=== PATIENT | female | born 1945 | race Caucasian/White ===

== ENCOUNTER 2021-02-18 09:44 | Outpatient (REF) | payer MEDICARE, OTHER, SELFPAY ==
--- NOTE | ~2021-02-18 | MM_ITS ---
EXAMINATION: MM SCREENING DIGITAL BREAST TOMOSYNTHESIS, BILATERAL CLINICAL INFORMATION: Screening. Asymptomatic. The lifetime risk of breast cancer based on the Tyrer-Cuzick Model is 3.9%. COMPARISON: Mammography: February 17, 2020 and studies dating back to January 25, 2014 TECHNIQUE: Digital breast tomosynthesis is performed in both the craniocaudal and mediolateral oblique views along with computer-aided detection (CAD). Synthesized 2D images are generated from the tomosynthesis. FINDINGS: The breasts are heterogeneously dense, which may obscure small masses (ACR BI-RADS breast composition Category c). There are no significant masses, abnormal calcifications, or other abnormalities. MM/MM tomosynthesis screening BI IMPRESSION: There are no significant changes from prior study. ASSESSMENT: BI-RADS 1: Negative RECOMMENDATION: Routine annual mammography screening. This patient's information was entered into a reminder system with a target due date for their next mammogram.
== END 2021-02-18 09:45 | disposition home or self-care (01) ==
LOC: HO.MAMMO 09:44
PROVIDERS: PCP Internal Medicine; Visit Provider Internal Medicine
DX: Z12.31 Encounter for screening mammogram for malignant neoplasm of breast (principal)
CPT/HCPCS: 77063; 77067

== ENCOUNTER → 2021-05-18 09:41 | Outpatient (BNVA) | payer MEDICARE, OTHER, SELFPAY | PROVIDERS: PCP Internal Medicine; Referring Provider Internal Medicine; Visit Provider Advanced Practice Midwife ==

== ENCOUNTER 2022-02-23 09:38 | Outpatient (REF) | payer MEDICARE, OTHER, SELFPAY ==
--- NOTE | ~2022-02-23 | MM_ITS ---
EXAMINATION: MM SCREENING DIGITAL BREAST TOMOSYNTHESIS, BILATERAL CLINICAL INFORMATION: Screening. Asymptomatic. The lifetime risk of breast cancer based on the Tyrer-Cuzick Model is 5%. COMPARISON: Mammography: 02/18/2021, 02/17/2020, 02/11/2019 TECHNIQUE: Digital breast tomosynthesis is performed in both the craniocaudal and mediolateral oblique views along with computer-aided detection (CAD). Synthesized 2D images are generated from the tomosynthesis. FINDINGS: There are scattered areas of fibroglandular density (ACR BI-RADS breast composition Category b). There are no significant masses, abnormal calcifications, or other abnormalities. Breast tissue composition borders on heterogeneously dense. Parenchymal pattern is similar to prior exams and there is no developing density. No significant changes. MM/MM tomosynthesis screening BI IMPRESSION: No mammographic evidence of malignancy. ASSESSMENT: BI-RADS 1: Negative RECOMMENDATION: Routine annual mammography screening. This patient's information was entered into a reminder system with a target due date for their next mammogram.
== END 2022-02-23 09:39 | disposition home or self-care (01) ==
LOC: HO.MAMMO 09:38
PROVIDERS: PCP Internal Medicine; Visit Provider Internal Medicine
DX: Z12.31 Encounter for screening mammogram for malignant neoplasm of breast (principal)
CPT/HCPCS: 77063; 77067

== ENCOUNTER 2023-03-01 09:48 | Outpatient (REF) | payer MEDICARE, OTHER, SELFPAY ==
--- NOTE | ~2023-03-01 | MM_ITS ---
EXAMINATION: MM SCREENING DIGITAL BREAST TOMOSYNTHESIS, BILATERAL CLINICAL INFORMATION: Screening. Asymptomatic. The lifetime risk of breast cancer based on the Tyrer-Cuzick Model is 4.6%. COMPARISON: Mammography: This study is compared with prior exams dating back to 2019. TECHNIQUE: Digital breast tomosynthesis is performed in both the craniocaudal and mediolateral oblique views along with computer-aided detection (CAD). Synthesized 2D images are generated from the tomosynthesis. FINDINGS: The breasts are heterogeneously dense, which may obscure small masses (ACR BI-RADS breast composition Category c). There are no significant masses, abnormal calcifications, or other abnormalities. MM/MM tomosynthesis screening BI IMPRESSION: No mammographic evidence of malignancy. ASSESSMENT: BI-RADS BI-RADS 1 - Negative RECOMMENDATION: Routine annual mammography screening. 1 year F/U This examination should not preclude the clinical evaluation of a suspicious palpable abnormality. This patient's information was entered into a reminder system with a target due date for their next mammogram.
== END 2023-03-01 09:49 | disposition home or self-care (01) ==
LOC: HO.MAMMO 09:48
PROVIDERS: PCP Internal Medicine; Visit Provider Internal Medicine
DX: Z12.31 Encounter for screening mammogram for malignant neoplasm of breast (principal)
CPT/HCPCS: 77063; 77067

== ENCOUNTER → 2023-03-01 10:15 | Outpatient (BNV) | payer MEDICARE, OTHER, SELFPAY | PROVIDERS: PCP Internal Medicine; Visit Provider Radiology Diagnostic Radiology | DX: Z12.31 Encounter for screening mammogram for malignant neoplasm of breast (principal) | CPT/HCPCS: 77063; 77067 ==

== ENCOUNTER 2023-05-24 08:58 | Outpatient (AMB) | payer MEDICARE, OTHER, SELFPAY ==
--- NOTE | 2023-05-24 09:27 | MHC.OFFVIS ---
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 Scribed for LITTLE Neri by Katiuska Altamirano medical claims processor, on 05/24/2023 at 9:53 am EST. Net Mender Required: No Allergies lidocaine Allergy (Unknown, Verified 05/24/23 09:42) Weakness Percodan Allergy (Unknown, Uncoded 05/24/23 09:42) Dizziness Talwin Allergy (Unknown, Uncoded 05/24/23 09:42) Headache Is last menstrual period known: No Post menopausal: Yes Patient : No HPI HPI Comments History of Present Illness Details She is a postmenopausal woman presenting for annual exam. Doing well with no bleaching supervisor concerns. Patient admits she tries to eat a healthy diet including Calcium and Vitamin D. She stays active with walking. Denies vaginal itching and irritation. Denies family hx of colon and ovarian cancer. History of normal paps, done at the [facility]. Last mammogram 03/01/23. Never had a colonoscopy. 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 [employer] Female Reproductive History Menstrual control method: none History of abnormal pap smear: No History of STI: No History of abnormal mammogram: No Other: manyyears ago Physical Exam Vital Signs: Last Vital Signs BP 132/62 05/24/23 09:37 BMI result Body Mass Index 28.2 Const General: cooperative, healthy appearing, no acute distress, well developed and alert Orientation/consciousness: patient oriented x3 HEENT Head: Yes normal to inspection Eyes General: appearance normal, both eyes and all related structures Neck Neck: Yes normal visual inspection Thyroid: Thyroid normal Chest Chest palpation & inspection: normal inspection of the chest Breast/axilla inspection: normal inspection of the breasts (no puckering, dimpling, peau de orange, retraction, discharge, masses) Breast/axilla palpation: normal palpation of the breasts Resp Effort & Inspection: normal respiratory effort GI Inspection: Yes normal to inspection Palpation (GI): Soft to palpation (to palpation) Rectal Exam - Female: deferred Other: smallest speculum was utilized; narrow introitus General: Yes bladder normal to inspection External Female Exam: normal external appearance and normal appearance of the urethra Speculum Exam - Vagina: normal appearance of the vagina, normal palpation and vagina atrophic Speculum Exam - Cervix: normal appearance of the cervix and normal palpation Bimanual exam- vagina & uterus: normal palpation and normal palpation Bimanual Exam- Adnexa, other: normal adnexae and no masses Skin General skin exam: no rashes or lesions noted Neuro General: patient oriented x3 Cognition (Neuro): normal cognition Extrem General: Yes normal to inspection Psych Attitude: cooperative Thought process: Normal thought process present Assessment & Plan Assessment & Plan (1) Encounter for annual routine gynecological examination: Code(s): Z01.419 - Encounter for gynecological examination (general) (routine) without abnormal findings Plan: Discussed: Current recommendations for pap smears per ASCCP guidelines-aged out with normal pap history. Advised to speak with PCP for bone density monitoring. Breast awareness and periodic self breast exams. Encouraged yearly mammograms. Maintaining a healthy lifestyle including a well balanced diet including Calcium and Vitamin D and routine exercise. Contact office with any PMB. All of her questions and concerns were addressed to the best of my ability. RTO in 1 year for AG. Coding Level of Care Code Est Pt Prev Care >65y(51181) Diagnoses Encounter for annual routine gynecological examination Z01.419
[2023-05-24 09:37] VITALS: BP 132/62; BMI 28.2
== END 2023-05-24 10:07 | disposition home or self-care (01) ==
PROVIDERS: PCP Internal Medicine; Visit Provider Advanced Practice Midwife
DX: Z01.419 Encounter for gynecological examination (general) (routine) without abnormal findings (principal)
CPT/HCPCS: G0101

== ENCOUNTER → 2023-05-24 08:58 | Outpatient (BNVA) | payer MEDICARE, OTHER, SELFPAY | PROVIDERS: PCP Internal Medicine; Visit Provider Advanced Practice Midwife | DX: Z01.419 Encounter for gynecological examination (general) (routine) without abnormal findings (principal) | CPT/HCPCS: G0101 ==

== ENCOUNTER 2024-03-06 09:48 | Outpatient (REF) | payer MEDICARE, OTHER, SELFPAY | END 2024-03-06 09:49 | disposition home or self-care (01) | LOC: HO.MAMMO 09:48 | PROVIDERS: Absent Provider Nurse Practitioner Family; PCP Internal Medicine; Visit Provider Internal Medicine | DX: Z12.31 Encounter for screening mammogram for malignant neoplasm of breast (principal) | CPT/HCPCS: 77063; 77067 ==

== ENCOUNTER → 2024-03-06 10:00 | Outpatient (BNV) | payer MEDICARE, OTHER, SELFPAY | PROVIDERS: Absent Provider Nurse Practitioner Family; PCP Internal Medicine; Visit Provider Radiology Diagnostic Radiology | DX: Z12.31 Encounter for screening mammogram for malignant neoplasm of breast (principal) | CPT/HCPCS: 77063; 77067 ==

== ENCOUNTER 2024-11-20 11:03 | Emergency (ER) | payer MEDICARE, OTHER, SELFPAY ==
--- NOTE | ~2024-11-20 | XR_ITS ---
EXAMINATION: XR ANKLE, RIGHT CLINICAL INFORMATION: pain COMPARISON: None available. TECHNIQUE: AP, lateral, and mortise views of the right ankle. FINDINGS: Edema pattern involving the medial and lateral malleolus. No subcutaneous emphysema. No acute cortical disruption or gross malalignment. No gross joint effusion. No lytic or blastic lesions. XR/XR ankle RT min 3V IMPRESSION: Bimalleolar edema. No gross acute fracture or dislocation. Electronically signed by: Darrian Thayer MD 11/20/2024 01:12 PM EDT
--- NOTE | ~2024-11-20 | XR_ITS ---
EXAMINATION: XR FOOT, RIGHT CLINICAL INFORMATION: pain COMPARISON: None available. TECHNIQUE: AP, lateral, and oblique views of the right foot. FINDINGS: Osteopenia versus osteoporosis. Degenerative changes in the first metatarsophalangeal joint and in the interval joints of the toes. Degenerative changes in the tarsal bones. No acute cortical disruption or gross malalignment. No lytic or blastic lesions. No subcutaneous emphysema. XR/XR foot RT min 3V IMPRESSION: Osteoarthrosis involving mostly the first toe without acute fracture or dislocation. Electronically signed by: Darrian Thayer MD 11/20/2024 01:13 PM EDT
[2024-11-20 12:29] VITALS: BP 169/83; PULSE 78; RESP 16; TEMP 36.8; O2SAT 98; BMI 26.1
--- NOTE | 2024-11-20 12:31 | ED.LOWEXIN ---
HPI - Extremity Injury (Lower) General Chief Complaint: Extremity Injury, Lower Stated Complaint: R Ankle Pain After Fall Time Seen by Provider: 11/20/24 13:54 Source: patient and RN notes reviewed Mode of arrival: ambulatory Limitations: no limitations History of Present Illness ED Provider: Chante Mena PA-C HPI Narrative: This is a 79-year-old female who presents emergency department for evaluation of right ankle pain. Patient states that on October 27 she was walking out of her house in tripped and fell forward, ultimately twisting her right ankle. Denies head injury or head strike. Patient states that she had a significant amount of bruising and swelling. She states that she continues to have swelling, and pain in her ankle. She has been taking Tylenol for her symptoms with some relief. No other complaints or concerns at this time. MD complaint: ankle injury Onset (ago): week(s) Type of Injury: unknown Place: street/outdoors Severity: moderate Relieving factors: nothing Exacerbating factors: weight bearing, movement and palpation Other symptoms: none Related Data Home Medications ?Medication ?Instructions ?Recorded ?Confirmed cholecalciferol (vitamin D3) 25 25 mcg PO DAILY 05/18/21 mcg (1,000 unit) capsule latanoprost 0.005 % eye drops 1 drp ophthalmic (eye) BEDTIME 05/18/21 magnesium oxide 400 mg PO DAILY 05/18/21 meclizine 12.5 mg tablet 12.5 mg PO TID PRN 05/18/21 omega 3,6,9 combination no.7 92 mg mg PO 05/18/21 (43 mg-22 [id number]) chew tablet vitamin E mixed 400 unit tablet unit PO 05/18/21 Allergies Allergy/AdvReac Type Severity Reaction Status Date / Time lidocaine Allergy Unknown Weakness Verified 11/20/24 12:35 Percodan Allergy Unknown Dizziness Uncoded 05/24/23 09:42 Talwin Allergy Unknown Headache Uncoded 05/24/23 09:42 Review of Systems Review of Systems: Yes all other systems are reviewed and are negative Constitutional: Constitutional: Reports as per HPI [facility] Past Medical History Medical History Basal cell carcinoma Hyperlipidemia Rosacea Vertigo GERD (gastroesophageal reflux disease) Hypertension Family History Family History Maternal Aunt History of breast cancer Social History Social History Alcohol intake: never Patient Tobacco Use Status: Never used Tobacco 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 Physical Exam Vital Signs: Vital Signs: Last Vital Signs Temp 98.2 F 11/20/24 14:17 Pulse 78 11/20/24 14:17 Resp 16 11/20/24 14:17 BP 169/83 H 11/20/24 14:17 Pulse Ox 98 11/20/24 14:17 O2 Del Method Room Air 11/20/24 14:17 BMI result Body Mass Index 26.1 Const: General: cooperative, comfortable and no acute distress Orientation/consciousness: patient oriented x3 Limitations: no limitations HEENT: Head: Yes normal to inspection, Yes normocephalic and Yes atraumatic Ears: hearing grossly normal bilaterally General nose exam: Normal external nose present Face and sinus: Yes normal facial exam Mouth: Normal oral and palatal mucosa present, oropharynx normal and moist mucous membranes Throat: Yes posterior oropharynx normal Eyes: General: appearance normal, both eyes and all related structures Eyelids: Yes eyelids normal Conjunctivae: conjunctivae normal Sclerae: sclerae normal Pupils: Equal, round and reactive pupils present EOM: EOMs intact bilaterally Neck: Neck: Yes normal visual inspection, Yes full ROM and Yes no lymphadenopathy Lymphatic: no lymphadenopathy noted Chest: Chest palpation & inspection: normal inspection of the chest Resp: Effort & Inspection: normal respiratory effort and able to speak in complete sentences Auscultation: clear to auscultation bilaterally, no crackles, no rales, no rhonchi and no wheezes Cardio: Rate: regular rate Rhythm: regular rhythm Heart sounds: S1 normal heart sound present and S2 normal heart sound present GI: Inspection: Yes normal to inspection Skin: General skin exam: no rashes or lesions noted Trauma: no lacerations or abrasions Wounds: no wounds Neuro: General: patient oriented x3 and moves all extremities Cranial nerves: Yes Equal, round and reactive pupils present Extrem: Other: Right ankle with moderate edema noted over the medial and lateral malleoli. Strong DP pulse. No bony step off or deformity. Achilles tendon is intact. ROM is intact. no calf ttp. General: Yes normal to inspection Right upper extremity: normal to inspection Left upper extremity: normal to inspection Left lower extremity: normal to inspection Course Course Course Narrative: This is an RME: Additional HPI, ROS, PE not included below will be deferred to primary provider. RME assessment and note performed by: Chante Heart PA-C This is a [id number], with a hx of vertigo, who presents to the ER with a complaint of right foot and ankle pain x several weeks. Reports she twisted her ankle while ambulating several weeks ago and has had pain since. TTP and edematous over the medial and lateral malleoli. Plan: xray foot and ankle. Medical Decision Making Medical Decision Making MDM Narrative: 79 y/o F who presents to the Er with complaints of R ankle pain which started several weeks ago after mechanical fall. On arrival, pt well appearing in no acute distress. Vital signs WNL. She is ambulatory. R LE with moderate diffuse edema without any skin changes. DDX including liagamentouos injury, strain, sprain, fx. Less likely DVT or peripheral edema. xrays performed revealing no acute bony abnormalities. Given malleloli TTP and edema, pt placed in tall boot and given ortho referall. Given return precautions. Stable for d/c. Differential Diagnosis Differential Diagnoses: The differential diagnosis associated with the presentation includes see above Radiology Impression Discussion of test interpretation with radiology: I have reviewed the radiologist's reading. Radiologist Impression: [address] [address] XRay Report Signed Patient: Anabella Wilson MR#: [id number] : 1945 Acct:[id number] Age/Sex: 79 / F ADM Date: 11/20/24 Loc: HO.ED Attending Dr: Ordering Physician: Chante Heart Date of Service: 11/20/24 Procedure(s): XR ankle RT min 3V Accession Number(s): [id number] cc: Benjamin Donato MD; Chante Heart~ EXAMINATION: XR ANKLE, RIGHT CLINICAL INFORMATION: pain COMPARISON: None available. TECHNIQUE: AP, lateral, and mortise views of the right ankle. FINDINGS: Edema pattern involving the medial and lateral malleolus. No subcutaneous emphysema. No acute cortical disruption or gross malalignment. No gross joint effusion. No lytic or blastic lesions. XR/XR ankle RT min 3V IMPRESSION: Bimalleolar edema. No gross acute fracture or dislocation. [address] [address] XRay Report Signed Patient: Anabella Wilson MR#: [id number] : 1945 Acct:[id number] Age/Sex: 79 / F ADM Date: 11/20/24 Loc: HO.ED Attending Dr: Ordering Physician: Chante Heart Date of Service: 11/20/24 Procedure(s): XR foot RT min 3V Accession Number(s): [id number] cc: Benjamin Donato MD; Chante Heart~ EXAMINATION: XR FOOT, RIGHT CLINICAL INFORMATION: pain COMPARISON: None available. TECHNIQUE: AP, lateral, and oblique views of the right foot. FINDINGS: Osteopenia versus osteoporosis. Degenerative changes in the first metatarsophalangeal joint and in the interval joints of the toes. Degenerative changes in the tarsal bones. No acute cortical disruption or gross malalignment. No lytic or blastic lesions. No subcutaneous emphysema. XR/XR foot RT min 3V IMPRESSION: Osteoarthrosis involving mostly the first toe without acute fracture or dislocation. Electronically signed by: Darrian Thayer MD 11/20/2024 01:13 PM EDT Dictated By: Darrian Farley MD Discharge Plan Discharge Clinical Impression: Sprain of ankle Patient Disposition: Home, Self-Care Instructions: Ankle Sprain (ED), Sprain (ED), R.I.C.E. Treatment (ED), Walking Boot (ED) Additional Instructions: You were seen in the emergency department due to ankle pain. You do have arthritis noted in your x-rays, you can see the full report below. You do not have any fractures noted. You need to follow-up with the orthopedic team, call today to make an appointment as you may need an MRI. Rest, ice, and elevate your foot and ankle. Continue taking Tylenol as needed for pain. If any new or worsening symptoms occur including but not limited to worsening pain, severe chest pain, shortness of breath, please seek emergent care. EXAMINATION: XR ANKLE, RIGHT CLINICAL INFORMATION: pain COMPARISON: None available. TECHNIQUE: AP, lateral, and mortise views of the right ankle. FINDINGS: Edema pattern involving the medial and lateral malleolus. No subcutaneous emphysema. No acute cortical disruption or gross malalignment. No gross joint effusion. No lytic or blastic lesions. XR/XR ankle RT min 3V IMPRESSION: Bimalleolar edema. No gross acute fracture or dislocation. Electronically signed by: Darrian Thayer MD 11/20/2024 01:12 PM EDT RP EXAMINATION: XR FOOT, RIGHT CLINICAL INFORMATION: pain COMPARISON: None available. TECHNIQUE: AP, lateral, and oblique views of the right foot. FINDINGS: Osteopenia versus osteoporosis. Degenerative changes in the first metatarsophalangeal joint and in the interval joints of the toes. Degenerative changes in the tarsal bones. No acute cortical disruption or gross malalignment. No lytic or blastic lesions. No subcutaneous emphysema. XR/XR foot RT min 3V IMPRESSION: Osteoarthrosis involving mostly the first toe without acute fracture or dislocation. Electronically signed by: Darrian Thayer MD 11/20/2024 01:13 PM EDT RP Dictated By: Darrian Farley MD Prescriptions: No Action meclizine 12.5 mg tablet 12.5 mg PO TID PRN latanoprost 0.005 % drops 1 drp ophthalmic (eye) BEDTIME magnesium oxide 400 mg magnesium capsule 400 mg PO DAILY cholecalciferol (vitamin D3) 25 mcg (1,000 unit) capsule 25 mcg PO DAILY omega 3,6,9 combination no.7 92 mg (43 mg-22 [id number]) tablet,chewable PO vitamin E mixed 400 unit tablet PO Referrals: [facility] [place] [facility] [Provider Group] Interventions: ED Discharge Assessment Last Done: 11/20/24 14:17 Discharge Date/Time: 11/20/24 14:20 Print Language: Icelandic
[2024-11-20 14:17] VITALS: BP 169/83; PULSE 78; RESP 16; TEMP 36.8; O2SAT 98
--- OUTSIDE RECORDS SUMMARY | 2024-11-20 16:52 | XMS_ITS | Continuity of Care Document ---
Author Name [facility] Organization [facility] Care Team Providers [place] Stocker Name Role Phone [facility] Unavailable Unavailable Problems Combined list of problems from Department of [facility] and Veterans Affairs facilities. It does not include entries that were removed or entered in error. Problem Status Onset Date Problem Type Date of Resolution Comments Source Benign paroxysmal positional vertigo Active Condition [facility] [place] History of malignant basal cell neoplasm of skin Active Condition Jan 22, 2018 Entered By: NIKOLAS GRANDE Comment: sees derm yearly. h/o basal cell removed on face [facility] Hyperlipidemia (SNOMED CT 56210157) Active Condition Nov 26, 2009 Entered By: MARIELENA GARRETT Comment: -- diet controlled [facility] Vertigo (SNOMED CT 541459258) Active Condition [facility] Diagnosis: ICD-10-CM Z23 Encounter for immunization Active Diagnosis [facility] [place] [facility] Diagnosis: ICD-10-CM E78.5 Hyperlipidemia, unspecified Active Diagnosis [facility] [place] [facility] Medications Combined list of outpatient medications from Department [facility] and [facility] facilities.Medications provided include 1) outpatient medications from the last 15 months, and 2) patient-reported medications. Medication Details Route Status Patient Instructions Prescription Expires Prescription Number Last Dispense Date Ordering Provider Order Date Order Qty Source CHOLECALCIF DREA 25MCG (1,000UNIT) TAB TAKE ONE TABLET BY MOUTH DAILY ORAL ACTIVE CARLOTTA GARRETT 2016 [facility] LATANOPROST 0.005% SOLN,OPH INSTILL 1 DROP INTO EACH EYE ONCE DAILY OPHTHA LMIC ACTIVE TRISTAN HERRERA 2022 [facility] [place] MAGNESIUM OXIDE 420MG TAB TAKE ONE TABLET BY MOUTH DAILY ORAL ACTIVE [facility] GRANDE [facility] MECLIZINE HCL 25MG TAB TAKE ONE-HALF TABLET BY MOUTH THREE TIMES DAILY NEEDED ORAL ACTIVE CARLOTTA GARRETT S [facility] OMEGA-3-ACI D ETHYL ESTERS 1000MG CAP,ORAL TAKE 1 CAPSULE BY MOUTH DAILY ORAL ACTIVE CARLOTTA GARRETTIAM S [facility] Allergies, Adverse Reactions, Alerts Combined list of allergies from Department of Defense and Veterans Affairs facilities. It does not include entries that were removed or entered in error. Substance Category Reaction Severity Reaction type Status Date Reported Comments Source BRIMONIDINE Propensity to adverse reactions to drug (finding) Blurring of visual image active 2 [facility] [place] [facility] PERCODAN Propensity to adverse reactions to drug (finding) Nausea and vomiting active 0 [facility] [facility] TALWIN Propensity to adverse reactions to drug (finding) Nausea and vomiting active [facility] [place] Propensity to adverse reactions to drug (finding) Fatigue active 2 [facility] [place] [facility] Immunizations Combined list of available immunizations from the Department of Defense and Veterans Affairs facilities. Immunization Series Date Given Administered By Site Reaction Lot Number CVX Code Drug Router Operator Status Comments Source COVID-19 (MODERNA), MRNA, LNP-S, PF, 50 MCG/0.5 ML (AGES 12+ YEARS) 2023 THEE ROSARIO H LEFT DELTO ID [id number] 312 complet ed [facility] [place] INFLUENZA, UNSPECIFIED FORMULATION 2023 88 complet ed [facility] [place] [facility] COVID-19 (MODERNA), MRNA, LNP-S, PF, 50 MCG/0.5 ML (AGES 12+ YEARS) 1 2022 CARLOS ENRIQUE ELLIS LEFT DELTO ID [id number] 312 complet ed [facility] [place] [facility] INFLUENZA, UNSPECIFIED FORMULATION 2022 LEFT DELTO ID 88 complet ed Lot#: [id number] [facility] [place] PNEUMOCOCCAL CONJUGATE PCV20, POLYSACCHARID E [id number] CONJUGATE, ADJUVANT, PF 2022 ANA CHAKRABORTY NE I LEFT DELTO ID [id number] 216 complet ed [facility] TD (ADULT), 2 LF TETANUS TOXOID, PRESERVATIVE FREE, ADSORBED 2022 MADELIN PARK BIBIANA LEFT DELTO ID [id number] 09 complet ed [facility] COVID-19 (MODERNA), MRNA, LNP-S, BIVALENT BOOSTER, PF, 50 MCG/0.5 ML OR 25MCG/0.25 ML DOSE 1 2021 229 complet ed MOD; [id number]; 3 [facility] INFLUENZA, UNSPECIFIED FORMULATION 2021 88 complet ed [facility] COVID-19 (MODERNA), MRNA, LNP-S, PF, 100 MCG OR 50 MCG DOSE 3 2020 207 complet ed MOD; [id number]; 2 [facility] INFLUENZA, UNSPECIFIED FORMULATION 2020 88 complet ed [facility] COVID-19 (MODERNA), MRNA, LNP-S, PF, 100 MCG/0.5 ML DOSE 2 2020 207 complet ed MOD; [id number]; 1 [facility] COVID-19 (MODERNA), MRNA, LNP-S, PF, 100 MCG/0.5 ML DOSE 1 2020 207 complet ed MOD; [id number]; 1 [facility] INFLUENZA, UNSPECIFIED FORMULATION 2019 88 complet ed [facility] INFLUENZA, SEASONAL, INJECTABLE 2018 141 complet ed [facility] INFLUENZA, SEASONAL, INJECTABLE 2017 141 complet ed [facility] ZOSTER RECOMBINANT 2 2017 187 complet ed [facility] ZOSTER RECOMBINANT 1 2017 187 complet ed [facility] INFLUENZA, SEASONAL, INJECTABLE 2016 141 complet ed [facility] FLU,3 YRS (HISTORICAL) 2015 88 complet ed Done at outside PCP office [facility] PNEUMOCOCCAL CONJUGATE PCV 13 2014 133 complet ed [facility] FLU,3 YRS (HISTORICAL) 2013 88 complet ed community PCP [facility] FLU,3 YRS (HISTORICAL) 2012 88 complet ed [facility] DTAP, UNSPECIFIED FORMULATION 2012 107 complet ed Site: Left Deltoid [facility] PNEUMOCOCCAL, UNSPECIFIED FORMULATION 2012 109 complet ed Site: Right Deltoid [facility] FLU,3 YRS (HISTORICAL) 2011 88 complet ed [facility] [place] FLU,3 YRS (HISTORICAL) 2010 88 complet ed [facility] TD(ADULT) UNSPECIFIED FORMULATION 2010 139 complet ed Site: Left Deltoid [facility] FLU,3 YRS (HISTORICAL) 2009 88 complet ed [facility] [place] FLU,3 YRS (HISTORICAL) 2009 88 complet ed [facility] ZOSTER LIVE 2009 MEGHNA MANN 121 complet ed [facility] NOVEL INFLUENZA-H1N 1-09, ALL FORMULATIONS 2009 128 complet ed [facility] FLU,3 YRS (HISTORICAL) 2008 88 complet ed [facility] PNEUMOCOCCAL, UNSPECIFIED FORMULATION 2007 109 complet ed [facility] PNEUMOCOCCAL POLYSACCHARID E [id number] 2005 33 complet ed [facility] PNEUMOCOCCAL, UNSPECIFIED FORMULATION 2005 109 complet ed [facility] Results Combined list of recent chemistry, hematology and other laboratory results from Department of Defense and Veterans Affairs, ranging from 15 months to all on record, depending upon the facility. Order Name Results Value Reference Range Date Interpretation Specimen Comments Source OCCULT BLOOD FIT X1 SCREEN(I N-HOUSE) HEMOGLOBIN .GASTROINT ESTINAL.LO WER [PRESENCE] IN STOOL BY IMMUNOASSA Y Negative 01/19 Specimen Type: FECES No comment entered. Ordering Provider: CARLOTTA HERRERA Report Released Date/Time: January 01, 2024 10:37 AM Reporting Lab: [address] [address] Performing Lab: [facility] [address] [address] [facility] THYROID T4 FREE(FT4 ) (WROX) THYROXINE (T4) FREE [MASS/VOLU ME] IN SERUM OR PLASMA 0.95 ng/dL 0.6 - 1.6 12/05 Specimen Type: SERUM No comment entered. Ordering Provider: CARLOTTA HERRERA Report Released Date/Time: Nov 01, 2023 10:59 AM Reporting Lab: [facility] [address] [address] Performing Lab: [facility] [address] [address] [facility] HEMOGLOB IN A1C PANEL HEMOGLOBIN A1C/HEMOGL OBIN.TOTAL IN BLOOD BY HPLC 5.5 4.0 - 5.6 12/05 Specimen Type: BLOOD Comment: Values obtained from A1C measurement s can vary. For atypical A1C assays, a reported value of 7.0 could actually be between 6.72 and 7.28 if measured by a reference method. A reported value of 9.0 could actually be between 8.73 and 9.27. Ref: http://www. ngsp.org/[place] Pdata.asp Ordering Provider: CARLOTTA HERRERA Report Released Date/Time: Nov 01, 2023 10:59 AM Reporting Lab: [facility] [address] [address] Performing Lab: [facility] [address] [facility] BASIC METABOLI C PANEL (non-fas ting) UREA NITROGEN [MASS/VOLU ME] IN SERUM OR PLASMA 25 mg/dL 7 - 25 12/05 Specimen Type: SERUM No comment entered. Ordering Provider: CARLOTTA HERRERA Report Released Date/Time: Nov 01, 2023 10:59 AM Reporting Lab: [facility] [address] Performing Lab: [facility] [address] [facility] BASIC METABOLI C PANEL (non-fas ting) GLUCOSE [MASS/VOLU ME] IN SERUM OR PLASMA 84 mg/dL 65 - 100 12/05 Specimen Type: SERUM No comment entered. Ordering Provider: CARLOTTA HERRERA Report Released Date/Time: Nov 01, 2023 10:59 AM Reporting Lab: [facility] [address] [address] Performing Lab: [facility] [address] [address] [facility] BASIC METABOLI C PANEL (non-fas ting) SODIUM [MOLES/VOL UME] IN SERUM OR PLASMA 142 mmol/L 135 - 145 12/05 Specimen Type: SERUM No comment entered. Ordering Provider: CARLOTTA HERRERA Report Released Date/Time: Nov 01, 2023 10:59 AM Reporting Lab: [facility] [address] Performing Lab: [facility] [place] [facility] [address] [address] [facility] BASIC METABOLI C PANEL (non-fas ting) POTASSIUM [MOLES/VOL UME] IN SERUM OR PLASMA 4.3 mmol/L 3.5 - 5.0 12/05 Specimen Type: SERUM No comment entered. Ordering Provider: CARLOTTA HERRERA Report Released Date/Time: Nov 01, 2023 10:59 AM Reporting Lab: [facility] [place] [facility] [address] [address] Performing Lab: [facility] [address] [facility] BASIC METABOLI C PANEL (non-fas ting) CHLORIDE [MOLES/VOL UME] IN SERUM OR PLASMA 106 mmol/L 100 - 110 12/05 Specimen Type: SERUM No comment entered. Ordering Provider: CARLOTTA HERRERA Report Released Date/Time: Nov 01, 2023 10:59 AM Reporting Lab: [facility] [address] Performing Lab: [facility] [address] [facility] BASIC METABOLI C PANEL (non-fas ting) CARBON DIOXIDE, TOTAL [MOLES/VOL UME] IN SERUM OR PLASMA 28 meq/L 20 - 30 12/05 Specimen Type: SERUM No comment entered. Ordering Provider: CARLOTTA HERRERA Report Released Date/Time: Nov 01, 2023 10:59 AM Reporting Lab: [facility]ITALUSE[facility] [address] [address] Performing Lab: [facility]ENTERTRN [facility] [address] [facility] BASIC METABOLI C PANEL (non-fas ting) CREATININE [MASS/VOLU ME] IN SERUM OR PLASMA 0.78 mg/dL 0.50 - 1.40 12/05 Specimen Type: SERUM No comment entered. Ordering Provider: CARLOTTA HERRERA Report Released Date/Time: Nov 01, 2023 10:59 AM Reporting Lab: [facility] [place] [facility] [address] [address] Performing Lab: [facility] [place] [address] [address] [facility] [place] [facility] BASIC METABOLI C PANEL (non-fas ting) GLOMERULAR FILTRATION RATE/1.73 SQ M.PREDICTE D [VOLUME RATE/AREA] IN SERUM, PLASMA OR BLOOD BY CREATININE -BASED FORMULA (CKD-EPI 2020) 77 mL/min 60 12/05 Specimen Type: SERUM No comment entered. Ordering Provider: CARLOTTA HERRERA Report Released Date/Time: Nov 01, 2023 10:59 AM Reporting Lab: [facility] [place] [address] [address] Performing Lab: [facility] [place] [address] [address] [facility] [place] [facility] CBC LEUKOCYTES [#/VOLUME] IN BLOOD BY AUTOMATED COUNT 4.54 10*3/uL 4.50 - 11.00 12/05 Specimen Type: BLOOD No comment entered. Ordering Provider: CARLOTTA HERRERA Report Released Date/Time: Nov 01, 2023 10:59 AM Reporting Lab: [facility] [place] [address] [address] Performing Lab: [facility] [place] [address] [address] [facility] [place] [facility] CBC ERYTHROCYT ES [#/VOLUME] IN BLOOD BY AUTOMATED COUNT 4.13 10*6/uL 3.93 - 5.16 12/05 Specimen Type: BLOOD No comment entered. Ordering Provider: CARLOTTA HERRERA Report Released Date/Time: Nov 01, 2023 10:59 AM Reporting Lab: [facility] [place] [address] [address] Performing Lab: [facility] [place] [facility] [address] [address] [facility] [place] [facility] CBC HEMOGLOBIN [MASS/VOLU ME] IN BLOOD 12.2 g/dL 12 - 15.2 12/05 Specimen Type: BLOOD No comment entered. Ordering Provider: CARLOTTA HERRERA Report Released Date/Time: Nov 01, 2023 10:59 AM Reporting Lab: [facility] [place] [facility] [address] [address] Performing Lab: [facility] [place] [facility] [address] [address] [facility] [place] [facility] CBC HEMATOCRIT [VOLUME FRACTION] OF BLOOD BY AUTOMATED COUNT 38.4 36.6 - 45.6 12/05 Specimen Type: BLOOD No comment entered. Ordering Provider: CARLOTTA HERRERA Report Released Date/Time: Nov 01, 2023 10:59 AM Reporting Lab: [facility] [place] [facility] [address] [address] Performing Lab: [facility] [place] [facility] [address] [address] [facility] [place] [facility] CBC MCV [ENTITIC VOLUME] BY AUTOMATED COUNT 93.0 fL 82 - 99 12/05 Specimen Type: BLOOD No comment entered. Ordering Provider: CARLOTTA HERRERA Report Released Date/Time: Nov 01, 2023 10:59 AM Reporting Lab: [facility] [address] [address] Performing Lab: [facility] [facility] [address] [address] [facility] [place] [facility] CBC MCHC [MASS/VOLU ME] BY AUTOMATED COUNT 31.8 g/dL 30.8 - 35.1 12/05 Specimen Type: BLOOD No comment entered. Ordering Provider: CARLOTTA HERRERA Report Released Date/Time: Nov 01, 2023 10:59 AM Reporting Lab: [facility] [place] [facility] [address] [address] Performing Lab: [facility] [place] [facility] [address] [address] [facility] [place] [facility] CBC PLATELETS [#/VOLUME] IN BLOOD BY AUTOMATED COUNT 227 10*3/uL 140 - 360 12/05 Specimen Type: BLOOD No comment entered. Ordering Provider: CARLOTTA HERRERA Report Released Date/Time: Nov 01, 2023 10:59 AM Reporting Lab: [facility] [address] [address] Performing Lab: [facility] [place] [facility] [address] [address] [facility] [place] [facility] CBC ERYTHROCYT E DISTRIBUTI ON WIDTH [RATIO] BY AUTOMATED COUNT 12.7 12.0 - 16.0 12/05 Specimen Type: BLOOD No comment entered. Ordering Provider: CARLOTAT HERRERA Report Released Date/Time: Nov 01, 2023 10:59 AM Reporting Lab: [facility] [place] [facility] [address] [address] Performing Lab: [facility] [place] [facility] [address] [address] [facility] [place] [facility] CBC MCH [ENTITIC MASS] BY AUTOMATED COUNT 29.5 pg 26.2 - 32.6 12/05 Specimen Type: BLOOD No comment entered. Ordering Provider: CARLOTTA HERRERA Report Released Date/Time: Nov 01, 2023 10:59 AM Reporting Lab: [facility] [place] [facility] [address] [address] Performing Lab: [facility] [place] [facility] [address] [address] [facility] [place] [facility] TSH THYROTROPI N [UNITS/VOL UME] IN SERUM OR PLASMA 1.11 u[IU]/mL 0.35 - 5.00 12/05 Specimen Type: SERUM No comment entered. Ordering Provider: CARLOTTA HERRERA Report Released Date/Time: Nov 01, 2023 10:59 AM Reporting Lab: [facility] [place] [facility] [address] [address] Performing Lab: [facility] [place] [facility] [address] [address] [facility] [place] [facility] LIPID PANEL, NON FASTING CHOLESTERO L [MASS/VOLU ME] IN SERUM OR PLASMA 201 mg/dL 12/05 H Specimen Type: SERUM No comment entered. Ordering Provider: CARLOTTA HERRERA Report Released Date/Time: Nov 01, 2023 10:59 AM Reporting Lab: [facility] [place] [facility] [address] [address] Performing Lab: [facility] [place] [facility] [address] [address] [facility] [place] [facility] LIPID PANEL, NON FASTING TRIGLYCERI DE [MASS/VOLU ME] IN SERUM OR PLASMA 67 mg/dL 0 - 150 12/05 Specimen Type: SERUM No comment entered. Ordering Provider: CARLOTTA HERRERA Report Released Date/Time: Nov 01, 2023 10:59 AM Reporting Lab: [facility] [place] [facility] [address] [address] Performing Lab: [facility] [place] [facility] [address] [address] [facility] [place] [facility] LIPID PANEL, NON FASTING CHOLESTERO L IN LDL [MASS/VOLU ME] IN SERUM OR PLASMA BY CALCCHRISSY N 136 mg/dL 0 - 129 12/05 H Specimen Type: SERUM No comment entered. Ordering Provider: CARLOTTA HERRERA Report Released Date/Time: Nov 01, 2023 10:59 AM Reporting Lab: [facility] [place] [facility] [address] [address] Performing Lab: [facility] [place] [facility] [address] [address] [facility] [place] [facility] LIPID PANEL, NON FASTING CHOLESTERO L.TOTAL/CH OLESTEROL IN HDL [MASS RATIO] IN SERUM OR PLASMA 3.9 12/05 Specimen Type: SERUM No comment entered. Ordering Provider: CARLOTTA HERRERA Report Released Date/Time: Nov 01, 2023 10:59 AM Reporting Lab: [facility] [place] [facility] [address] [address] Performing Lab: [facility] [place] [facility] [address] [address] [facility] [place] [facility] LIPID PANEL, NON FASTING CHOLESTERO L IN HDL [MASS/VOLU ME] IN SERUM OR PLASMA 52 mg/dL 40 - 60 12/05 Specimen Type: SERUM No comment entered. Ordering Provider: CARLOTTA HERRERA Report Released Date/Time: Nov 01, 2023 10:59 AM Reporting Lab: [facility] [place] [address] [address] Performing Lab: [facility] [place] [facility] [address] [address] [facility] [place] [facility] LIVER FUNCTION PROTEIN [MASS/VOLU ME] IN SERUM OR PLASMA 6.2 g/dL 6.0 - 8.3 12/05 Specimen Type: SERUM No comment entered. Ordering Provider: CARLOTTA HERRERA Report Released Date/Time: Nov 01, 2023 10:59 AM Reporting Lab: [facility] [place] [address] [address] Performing Lab: [facility] [place] [facility] [address] [address] [facility] [place] [facility] LIVER FUNCTION ALBUMIN [MASS/VOLU ME] IN SERUM OR PLASMA 3.6 g/dL 3.5 - 5.0 12/05 Specimen Type: SERUM No comment entered. Ordering Provider: CARLOTTA HERRERA Report Released Date/Time: Nov 01, 2023 10:59 AM Reporting Lab: [facility] [place] [address] [address] Performing Lab: [facility] [place] [address] [address] [facility] [place] [facility] LIVER FUNCTION ALKALINE PHOSPHATAS E [ENZYMATIC ACTIVITY/V OLUME] IN SERUM OR PLASMA 87 U/L 40 - 150 12/05 Specimen Type: SERUM No comment entered. Ordering Provider: CARLOTTA HERRERA Report Released Date/Time: Nov 01, 2023 10:59 AM Reporting Lab: [facility] [place] [facility] [address] [address] Performing Lab: [facility] [place] [facility] [address] [address] [facility] [place] [facility] LIVER FUNCTION ASPARTATE AMINOTRANS FERASE [ENZYMATIC ACTIVITY/V OLUME] IN SERUM OR PLASMA 18 U/L 5 - 34 12/05 Specimen Type: SERUM No comment entered. Ordering Provider: CARLOTTA HERRERA Report Released Date/Time: Nov 01, 2023 10:59 AM Reporting Lab: [facility] [place] [facility] [address] [address] Performing Lab: [facility] [place] [facility] [address] [address] [facility] [place] [facility] LIVER FUNCTION ALANINE AMINOTRANS FERASE [ENZYMATIC ACTIVITY/V OLUME] IN SERUM OR PLASMA 16 U/L 12/05 Specimen Type: SERUM No comment entered. Ordering Provider: CARLOTTA HERRERA Report Released Date/Time: Nov 01, 2023 10:59 AM Reporting Lab: [facility] [place] [facility] [address] [address] Performing Lab: [facility] [address] [address] [facility] LIVER FUNCTION BILIRUBIN. TOTAL [MASS/VOLU ME] IN SERUM OR PLASMA 0.5 mg/dL 0.2 - 1.2 12/05 Specimen Type: SERUM No comment entered. Ordering Provider: CARLOTTA HERRERA Report Released Date/Time: Nov 01, 2023 10:59 AM Reporting Lab: [facility] [place] [facility] [address] [id number] Performing Lab: [facility] [place] [facility] [address] [phone] [facility] [place] [facility] OCCULT BLOOD FIT X1 SCREEN(I N-HOUSE) OCCULT BLOOD (FIT)#1 OF 1 Negative 01/10 Specimen Type: FECES No comment entered. Ordering Provider: CARLOTTA HERRERA Report Released Date/Time: January 02, 2023 10:52 AM Reporting Lab: [facility] [place] [facility] [address] [phone] Performing Lab: [facility] [place] [facility] [address] [phone] [facility] THYROID T4 FREE(FT4 ) THYROXINE (T4) FREE [MASS/VOLU ME] IN SERUM OR PLASMA 1.01 ng/dL 0.6 - 1.6 12/20 Specimen Type: SERUM No comment entered. Ordering Provider: CARLOTTA HERRERA Report Released Date/Time: Dec 01, 2022 10:14 AM Reporting [facility] [place] [facility] [address] [address] Performing Lab: [facility] [place] [facility] [address] [facility] [address] [facility] [place] [facility] Vital Signs Combined list of inpatient and outpatient Vital Signs from Department of Defense and Veterans Affairs, ranging from 12 months to all on record, depending upon the facility. Vital Sign Value Date Comments Source SYSTOLIC BLOOD PRESSURE 133 01/01/20 24 10:23:07 [facility] [place] [facility] DIASTOLIC BLOOD PRESSURE 79 024 10:23:07 [facility] [place] [facility] PULSE OXIMETRY 98 01/01/2024 10:23:07 [facility] [place] [facility] WEIGHT 165 01/01/2024 10:23:07 [facility] [place] [facility] BMI 27 kg/m2 01/01/2024 10:23:07 [facility] [place] PAIN 0 01/01/2024 10:23:07 [facility] [place] HEIGHT 66 01/01/2024 10:23:07 [facility] [place] TEMPERATURE 97.6 01/01/2024 10:23:07 [facility] [place] PULSE 71 01/01/2024 10:23:07 [facility] [place] RESPIRATION 20 01/01/2024 10:23:07 [facility] [place] [facility] Encounters Combined list of: 1) Encounters from Department of Veterans Affairs facilities going backup to the last 18 months, not all VA inpatient encounters are included; 2) Encounters from the Department of Defense facilities going backup to 280 months. Location Location Details Encounter Type Encounter Number Reason For Visit Attending Provider ADM Date DC Date Status Disposition Source [facility] Encounter [id number] 05/24 [facility] [id number] 05/30 [facility] Encounter [id number] 06/05 [facility] OFF/OP EST DECEMBER X REQ PHY/QHP [id number] Diagnos is: ICD-10- CM Z23 Encount er for immuniz ation STEVEN ELLIS P 06/09 [facility] Encounter [id number] 06/13 [facility] Encounter [id number] 08/16 [facility] Encounter [id number] 08/31 [facility] Encounter [id number] 09/21 [facility] Encounter [id number] 10/30 [facility] Encounter [id number] 12/11 [facility] OFFICE O/P EST LOW 20 MIN [id number] Diagnos is: ICD-10- CM E78.5 Hyperli pidemia , unspeci fied Nader HERRERA 12/31 [facility] En[facility] [id number] 01/21 [facility] En[facility] [id number] 01/28 [facility] En[facility] [id number] 02/28 [facility] En[facility] [id number] 03/21 [facility] [place] En[facility] [id number] 04/10 [facility] En[facility] [id number] 04/29 [facility] En[facility] [id number] 05/02 [facility] En[facility] [id number] 06/12 [facility] En[facility] [id number] 06/13 [facility] [place] OFF/OP EST DECEMBER X REQ PHY/QHP [id number] Diagnos is: ICD-10- CM Z23 Encount er for immuniz ryne Timur ROSARIO H 06/17 [facility] En[facility] [id number]/[id number] [facility] [place] En[facility] [id number] 07/05 [facility] En[facility] [id number] 08/13 [facility] [place] En[facility] [id number] 08/29 [facility] [place] En[facility] [id number] 10/02 [facility] [place] En[facility] [id number] 10/24 [facility] Social History Combined list of available smoking, tobacco, and other social history from Department of Defense and Veterans Affairs facilities. Social History Type Response Date Comment Sourc e Tobacco smoking status NHIS VA-TOBACCO NEVER USED 01/01/2024 [facility] [place] [facility] History of tobacco use VA-TOBACCO FORMER USER 01/02/2023 [facility] [place] [facility] History of tobacco use CA-TOBACCO FORMER USER 02/03/2021 [facility] [place] [facility] History of tobacco use CA-TOBACCO FORMER USER 01/24/2020 [facility] [place] [facility] History of tobacco use CA-TOBACCO NEVER USED 02/16/2018 [facility] [place] [facility] History of tobacco use LIFETIME NON-TOBACCO USER 12/04/2017 [facility] [place] [facility] History of tobacco use LIFETIME NON-TOBACCO USER 02/14/2017 [facility] [place] [facility] History of tobacco use LIFETIME NON-TOBACCO USER 02/02/2016 [facility] [place] [facility] History of tobacco use LIFETIME NON-TOBACCO USER 11/24/2010 [facility] [place] [facility] Plan of Care List of future care activities from Department of Veterans Affairs facilities. Additional future care activities may be listed in the Assessment and Plan section. Date/Time Care Activity Care Activity Detail Facili ty 12/30/2024 AMBULATORY - MEDICINE [facility] [place] [facility]
== END 2024-11-20 14:20 | disposition home or self-care (01) ==
PROVIDERS: Emergency Provider Emergency Medicine; PCP Internal Medicine
DX: S93.401A Sprain of unspecified ligament of right ankle, initial encounter (principal); M25.571 Pain in right ankle and joints of right foot; W01.0XXA Fall on same level from slipping, tripping and stumbling without subsequent striking against object, initial encounter; Y93.01 Activity, walking, marching and hiking; Y92.89 Other specified places as the place of occurrence of the external cause; Y99.8 Other external cause status; Z79.899 Other long term (current) drug therapy
CPT/HCPCS: 73610; 73630; 99283

== ENCOUNTER → 2024-11-20 12:35 | Outpatient (BNV) | payer MEDICARE, OTHER, SELFPAY | PROVIDERS: Emergency Provider Emergency Medicine; PCP Internal Medicine; Visit Provider Radiology Diagnostic Radiology | DX: M25.571 Pain in right ankle and joints of right foot (principal); R22.41 Localized swelling, mass and lump, right lower limb; M79.671 Pain in right foot | CPT/HCPCS: 73610; 73630 ==

== ENCOUNTER 2024-12-02 13:44 | Outpatient (AMB) | payer MEDICARE, OTHER, SELFPAY ==
[2024-12-02 14:16] VITALS: BP 140/76; PULSE 92; TEMP 36.3; O2SAT 98; BMI 26.5
--- NOTE | 2024-12-02 14:16 | A.OFFPC_ITS ---
Vital Signs 12/02/24 14:16 Height 5 ft 5 in Weight 159 lb BMI 26.5 BP 140/76 H Blood Pressure Location Lt brachial Position Sitting Pulse 92 Pulse Source Pulse Oximeter Temp 97.3 F Temp Source Axillary Pulse Oximetry (%) 98 Oxygen Delivery Method Room Air Intake Visit Reasons: Routine Acetone Button Paster Required: No Accompanied by: Self / Same As Patient Allergies lidocaine Allergy (Unknown, Verified 12/02/24 14:17) Weakness Percodan Allergy (Unknown, Uncoded 12/02/24 14:17) Dizziness Talwin Allergy (Unknown, Uncoded 12/02/24 14:17) Headache Tobacco use date assessed: 12/02/24 Fall risk assessment: 1 Fall in past year Last assessed Fall Risk: 12/02/24 Dental Screening Dental Screen Date: 12/02/24 Did you have a dental visit in the last 12 months?: Yes Did you have a dental problem in the last 6 months where you did not have access to dental care?: No [facility] Medical History (Updated 12/02/24 @ 14:58 by Vince Granger MD) BPPV (benign paroxysmal positional vertigo) Basal cell carcinoma Hyperlipidemia Rosacea Vertigo GERD (gastroesophageal reflux disease) Hypertension Family History (Updated 12/02/24 @ 14:30 by Lana Cardenas CMA) Maternal Aunt History of breast cancer Mother No problems noted. Father No problems noted. 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 Cognitive needs: No Hearing needs: No Vision needs: Yes (rx glasses) Questionnaire PHQ-9 Over the last 2 weeks, how often have you been bothered by any of the following problems? 1. Little interest or pleasure in doing things: not at all 2. Feeling down, depressed, or hopeless: not at all 3. Trouble falling or staying asleep, or sleeping too much: not at all 4. Feeling tired or having little energy: not at all 5. Poor appetite or overeating: not at all 6. Feeling bad about yourself - or that you are a failure or have let yourself or your family down: not at all 7. Trouble concentrating on things, such as reading the newspaper or watching television: not at all 8. Moving or speaking so slowly that other people could have noticed. Or the opposite - being so fidgety or restless that you have been moving around a lot more than usual: not at all 9. Thoughts that you would be better off or of hurting yourself in some way: not at all Total score: 0 Source: Developed by Drs. Billy Reich, Rita Miles, Pedrito Bennett and colleagues, with an educational hannah from [employer]. Thrive Questionnaire Date Thrive assessed: 12/02/24 I am a: Patient Within the past 12 months, did the food you bought not last and you didn't have the money to get more?: Never true Within the past 12 months, did you worry whether your food would run out before you got money to buy more?: Never true Do you have trouble paying for medicines?: No Do you have trouble getting transportation to medical appointments?: No Do you have trouble paying your heating and electricity bill?: No Do you have trouble taking care of your child, family member or friend?: No Do you have trouble with day-to-day activities such as bathing, preparing meals, shopping, managing finances, etc.?: No Are you currently unemployed and looking for a job?: No Are you interested in more education?: No THRIVE Score: 0 AUDIT C Alcohol Use Questionnaire (AUDIT-C) 1. How often do you have a drink containing alcohol?: Monthly or less 2. How many drinks containing alcohol do you have on a typical day when you are drinking?: 1 or 2 3. How often do you have six or more drinks on one occasion?: Less than monthly Total Score: 2 FAN-7 AMB Questionnaire FAN-7 Date FAN - 7 assessed: 12/02/24 Feeling nervous, anxious, or on edge: 0 = Not at all Not being able to stop or control worryin = Not at all Worrying too much about different things: 0 = Not at all Trouble relaxin = Not at all Being so restless that it is hard to sit still: 0 = Not at all Becoming easily annoyed or irritable: 0 = Not at all Feeling afraid as if something awful might happen: 0 = Not at all Total FAN-7 score (0-4 normal; 5-9 mild; 10-14 moderate; 15-21 severe): 0 Source: Developed by Drs. Billy Reich, Rita Miles, Pedrito Bennett and colleagues, with an educational hannah from [employer]. Physical exam (Primary Care) Vital Signs: Last Vital Signs Temp 97.3 F 12/02/24 14:16 Pulse 92 12/02/24 14:16 BP 140/76 H 12/02/24 14:16 Pulse Ox 98 12/02/24 14:16 Oxygen Delivery Method Room Air 12/02/24 14:16 BMI result Body Mass Index 26.5 Tobacco/Smoking Status: Tobacco use Status Tobacco use date assessed 12/02/24 12/02/24 14:20 Patient Tobacco Use Status Former Tobacco user 12/02/24 14:31 e-Cigarette/Vaping Use Former Use 12/02/24 14:31 PHQ-9: PHQ-9 Score PHQ-9: Total score 0 12/02/24 14:31 Thrive Assessment: Date of Thrive Assessment Date Thrive assessed 12/02/24 12/02/24 14:20 Coding Level of Care Code New Pt Level 4 (10683) Complex EM visit Add On G2211 Diagnoses BPPV (benign paroxysmal positional vertigo) H81.10 Assessment & Plan Assessment & Plan (1) BPPV (benign paroxysmal positional vertigo): Code(s): H81.10 - Benign paroxysmal vertigo, unspecified ear Category: Medical Plan: Intermittent use of meclizine. Patient has had great benefit form acupuncture. Continue the same. Plan History of Present Illness The patient is a 79-year-old female presenting for a wellness visit focused on the management of vertigo and vaccination review. She has experienced non- positional vertigo over the years, significantly improved with regular acupuncture sessions over the past eight years. Previously on regular medication, she now reserves meclizine for occasional use to manage symptoms. Her medical history is notable for arthritis, affecting her physical activity level. Following a fall in October, she experienced right-sided swelling indicative of a tendon injury with an X-ray confirming no fracture. She remains diligent about her health, [facility]. Her vaccination history includes past measles and whooping cough infections, and a recent COVID-19 booster. Social History - with annual visits to [place] for [place] and vaccinations. - [facility] - Maintains independence, manages finances, and carries out daily activities such as grocery shopping. - Participates in community work by volunteering two and a half days per week. - Drives occasionally but avoids night driving due to safety concerns. - Keeps active by walking and engaging in volunteer work, although arthritis limits walking distance. - Actively involved in the planning of personal affairs and advanced care directives. Review of Systems - Neurological: Reports non-positional vertigo with episodes becoming infrequent and mild due to acupuncture; Denies major attacks recently. - Musculoskeletal: Reports arthritis affecting walking capacity; Denies other joint pain. - Other: Denies stomach pains except for occasional vertigo-related stomach upset. Physical Exam General: Cooperative and healthy appearing Nutritional Appearance: Well nourished Orientation/consciousness: Patient oriented x3 Limitations: No limitations Head: Normal to inspection General: Appearance normal, both eyes and all related structures Neck: Normal visual inspection Chest: Normal palpation of entire chest wall Respiratory: N ormal respiratory effort Neurology: Patient oriented x3, reports nonpositional vertigo, occasional quick spells, no severe attacks recently. Results - X-ray of the right ankle: No fracture identified. Plan Patient will continue acupuncture sessions for vertigo management with the optional use of meclizine for occasional symptoms. The recent ankle injury shows no fracture, and RICE therapy should be followed until the orthopedic evaluation. Her arthritis will be managed symptomatically through lifestyle modifications. Regarding vaccines, previous measles and whooping cough, and a recent COVID-19 dose suggest the patient requires no further immediate vaccines, although future COVID-19 boosters are advised when available. Regular check-ups at the [place] will be beneficial for ongoing health monitoring. The patient is advised to report any changes in symptoms or health status as needed. Patient was informed and verbally consented to the use of an ambient scribe for clinic note documentation during this visit. Discussion Notes I discussed with the patient the effective management of her vertigo symptoms through continued acupuncture, with reassurance provided regarding the safety and efficacy of meclizine for rare episodes of nausea. The absence of fracture post-fall and specific care for her tendon strain were reviewed, emphasizing suitable RICE therapy while awaiting orthopedic assessment. We covered her history of vaccinations, noting the adequacy of current immunizations but recommending future COVID-19 boosters. Further, I emphasized the importance of regular [facility] and provided reassurance on independent living capacity as part of wellness strategy. The patient confirmed understanding of the plan and sides with the proposed management approach. Patient Instructions - Continue regular acupuncture therapy and use meclizine as needed for vertigo symptoms. - Apply RICE therapy for ankle strain and maintain scheduled orthopedic follow- up. - Follow health safety measures and consider COVID-19 boosters when available. - Engage in activities that maintain functionality and monitor arthritis symptoms. - [facility] annually and report any new or worsening symptoms.
--- OUTSIDE RECORDS SUMMARY | 2024-12-02 15:55 | XMS_ITS | Continuity of Care Document ---
Author Name [facility] Organization [facility] Care Team Providers Care Pharmacoepidemiologist Name Role Phone [facility] Unavailable Unavailable Problems Combined list of problems from Department of [facility] and [facility] facilities. It does not include entries that [...] [facility] [place] [facility] Hyperlipidemia (SNOMED CT 75844119) Active Condition Nov 26, 2009 Entered By: MARIELENA GARRETT Comment: -- diet controlled [facility] [place] [facility] Vertigo (SNOMED CT 165032815) Active Condition [facility] [place] [facility] Diagnosis: ICD-10-CM Z23 Encounter for immunization Active Diagnosis [facility] [place] [facility] Diagnosis: ICD-10-CM E78.5 Hyperlipidemia, unspecified Active Diagnosis [place] [facility] [place] [facility] Medications Combined list of outpatient medications from Department [facility] and [facility] facilities.Medications provided include 1) outpatient medications from the last 15 months, and 2) patient-reported medications. Medication Details Route Status Patient Instructions Prescription Expires Prescription Number Last Dispense Date Ordering Provider Order Date Order Qty Source CHOLECALCIF DREA 25MCG (1,000UNIT) TAB TAKE ONE TABLET BY MOUTH DAILY ORAL ACTIVE CARLOTTA GARRETT 2016 [place] [facility] [place] [facility] LATANOPROST 0.005% SOLN,OPH INSTILL 1 DROP INTO EACH EYE ONCE DAILY OPHTHA LMIC ACTIVE TRISTAN HERRERA 2022 [facility] [place] [facility] MAGNESIUM OXIDE 420MG TAB TAKE ONE TABLET BY MOUTH DAILY ORAL ACTIVE [facility] MECLIZINE HCL 25MG TAB TAKE ONE-HALF TABLET BY MOUTH THREE TIMES DAILY NEEDED ORAL ACTIVE CARLOTTA GARRETT 2009 [facility] OMEGA-3-ACI D ETHYL ESTERS 1000MG CAP,ORAL TAKE 1 CAPSULE BY MOUTH DAILY ORAL ACTIVE CARLOTTA GARRETTIATimur S 2013 [facility] Allergies, Adverse Reactions, Alerts Combined list of allergies from Department of Defense and Veterans Affairs facilities. It does not include entries that were removed or entered in error. Substance Category Reaction Severity Reaction type Status Date Reported Comments Source BRIMONIDINE Propensity to adverse reactions to drug (finding) Blurring of visual image [facility] PERCODAN Propensity to adverse reactions to drug (finding) Nausea and vomiting active [facility] TALWIN Propensity to adverse reactions to drug (finding) Nausea and vomiting active [facility] TIMOLOL Propensity to adverse reactions to drug (finding) Fatigue active 2 [facility] Immunizations Combined list of available immunizations from the Department of Defense and Veterans Affairs facilities. 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 Comments Source COVID-19 (MODERNA), MRNA, LNP-S, PF, 50 MCG/0.5 ML (AGES 12+ YEARS) 2023 THEE ROSARIO H LEFT DELTO ID [id number] 312 complet ed [facility] INFLUENZA, UNSPECIFIED FORMULATION 2023 88 complet ed HISTORICA L INFORMATI ON - FROM PATIENT'S WRITTEN RECORD, [facility] COVID-19 (MODERNA), MRNA, LNP-S, PF, 50 MCG/0.5 ML (AGES 12+ YEARS) 1 2022 CARLOS ENRIQUE ELLIS LEFT DELTO ID [id number] 312 complet ed [facility] INFLUENZA, UNSPECIFIED FORMULATION 2022 LEFT DELTO ID 88 complet ed HISTORICA L INFORMATI ON - FROM PATIENT'S WRITTEN RECORD, Lot#: [id number] [facility] PNEUMOCOCCAL CONJUGATE PCV20, POLYSACCHARID E [id number] CONJUGATE, ADJUVANT, PF 2022 ANA CHAKRABORTY NE I LEFT DELTO ID [id number] 216 complet ed [facility] TD (ADULT), 2 LF TETANUS TOXOID, PRESERVATIVE FREE, ADSORBED 2022 MADELIN PARKA LEFT DELTO ID [id number] 09 complet ed Booster for Series, [facility] COVID-19 (MODERNA), MRNA, LNP-S, BIVALENT BOOSTER, PF, 50 MCG/0.5 ML OR 25MCG/0.25 ML DOSE 1 2021 229 complet ed MOD; [id number]; 3 [facility] INFLUENZA, UNSPECIFIED FORMULATION 2021 88 complet ed Booster for Series, HISTORICA L INFORMATI ON - FROM PATIENT'S WRITTEN RECORD, [facility] COVID-19 (MODERNA), MRNA, LNP-S, PF, 100 MCG OR 50 MCG DOSE 3 2020 207 complet ed MOD; [id number]; 2 [facility] INFLUENZA, UNSPECIFIED FORMULATION 2020 88 complet ed Booster for Series, HISTORICA L INFORMATI ON - FROM PATIENT'S WRITTEN RECORD, [facility] COVID-19 (MODERNA), MRNA, LNP-S, PF, 100 MCG/0.5 ML DOSE 2 2020 207 complet ed MOD; [id number]; 1 [facility] COVID-19 (MODERNA), MRNA, LNP-S, PF, 100 MCG/0.5 ML DOSE 1 01/29/ 2021 207 complet ed MOD; [id number]; 1 [facility] INFLUENZA, UNSPECIFIED FORMULATION 2019 88 complet ed [facility] INFLUENZA, SEASONAL, INJECTABLE 2018 141 complet ed [facility] [place] INFLUENZA, [...] FLU,3 YRS (HISTORICAL) 2011 88 complet ed [facility] [place] FLU,3 YRS (HISTORICAL) 2010 88 complet ed [facility] [place] TD(ADULT) UNSPECIFIED FORMULATION 2010 139 complet ed Site: Left Deltoid [facility] [place] FLU,3 YRS (HISTORICAL) 2009 88 complet ed [facility] [place] [...] PNEUMOCOCCAL, UNSPECIFIED FORMULATION 2007 109 complet ed [facility] [place] PNEUMOCOCCAL POLYSACCHARID E [id number] 2005 33 complet ed HISTORICA L INFORMATI ON - SOURCE UNSPECIFI ED, [facility] [place] PNEUMOCOCCAL, UNSPECIFIED FORMULATION 2005 109 complet ed [facility] [place] Results Combined list of recent chemistry, hematology [...] January 01, 2024 10:37 AM Reporting Lab: [facility] [place] [facility] [address] [address] Performing Lab: [facility] [place] [facility] [address] [address] [facility] [place] [facility] THYROID T4 FREE(FT4 ) (WROX) THYROXINE (T4) FREE [MASS/VOLU ME] IN SERUM OR PLASMA 0.95 ng/dL 0.6 - 1.6 12/05 Specimen Type: SERUM No comment entered. Ordering Provider: CARLOTTA HERRERA Report Released Date/Time: Nov 01, 2023 10:59 AM Reporting Lab: [facility] [place] [facility] [address] [address] Performing Lab: [facility] [place] [facility] [address] [facility] [address] [facility] HEMOGLOB IN A1C PANEL HEMOGLOBIN A1C/HEMOGL OBIN.TOTAL [...] Nov 01, 2023 10:59 AM Reporting Lab: [facility] [address] [address] Performing Lab: [facility] [address] [address] [facility] TSH THYROTROPI N [UNITS/VOL UME] IN SERUM OR PLASMA 1.11 u[IU]/mL 0.35 - 5.00 12/05 Specimen Type: SERUM No comment entered. Ordering Provider: CARLOTTA HERRERA Report Released Date/Time: Nov 01, 2023 10:59 AM Reporting Lab: [facility] [address] [address] Performing Lab: [facility] [address] [address] [facility] BASIC METABOLI C PANEL (non-fas ting) UREA NITROGEN [MASS/VOLU ME] IN SERUM OR PLASMA 25 mg/dL 7 - 25 12/05 Specimen Type: SERUM No comment entered. Ordering Provider: CARLOTTA HERRERA Report Released Date/Time: Nov 01, 2023 10:59 AM Reporting Lab: [facility] [address] Performing Lab: [facility] [address] [address] [facility] BASIC METABOLI C PANEL (non-fas ting) GLUCOSE [MASS/VOLU ME] IN SERUM OR PLASMA 84 mg/dL 65 - 100 12/05 Specimen Type: SERUM No comment entered. Ordering Provider: CARLOTTA HERRERA Report Released Date/Time: Nov 01, 2023 10:59 AM Reporting Lab: [facility] [address] [address] Performing Lab: [facility] [address] [address] [facility] BASIC METABOLI C PANEL (non-fas ting) SODIUM [MOLES/VOL UME] IN SERUM OR PLASMA 142 mmol/L 135 - 145 12/05 Specimen Type: SERUM No comment entered. Ordering Provider: CARLOTTA HERRERA Report Released Date/Time: Nov 01, 2023 10:59 AM Reporting Lab: [facility] [address] [address] Performing Lab: [facility] [address] [address] [facility] BASIC METABOLI C PANEL (non-fas ting) POTASSIUM [MOLES/VOL UME] IN SERUM OR PLASMA 4.3 mmol/L 3.5 - 5.0 12/05 Specimen Type: SERUM No comment entered. Ordering Provider: CARLOTTA HERRERA Report Released Date/Time: Nov 01, 2023 10:59 AM Reporting Lab: [facility] [address] [address] Performing Lab: [facility] [address] [address] [facility] BASIC METABOLI C PANEL (non-fas ting) CHLORIDE [MOLES/VOL UME] IN SERUM OR PLASMA 106 mmol/L 100 - 110 12/05 Specimen Type: SERUM No comment entered. Ordering Provider: CARLOTTA HERRERA Report Released Date/Time: Nov 01, 2023 10:59 AM Reporting Lab: [facility] [place] [facility] [address] [address] Performing Lab: [place] [facility] [place] [facility] [address] [address] [facility] [place] [facility] BASIC METABOLI C PANEL (non-fas ting) CARBON DIOXIDE, TOTAL [MOLES/VOL UME] IN SERUM OR PLASMA 28 meq/L 20 - 30 12/05 Specimen Type: SERUM No comment entered. Ordering Provider: CARLOTTA HERRERA Report Released Date/Time: Nov 01, 2023 10:59 AM Reporting Lab: [place] [facility] [address] [address] Performing Lab: [place] [facility] [address] [facility] BASIC METABOLI C PANEL (non-fas ting) CREATININE [MASS/VOLU ME] IN SERUM OR PLASMA 0.78 mg/dL 0.50 - 1.40 12/05 Specimen Type: SERUM No comment entered. Ordering Provider: CARLOTTA HERRERA Report Released Date/Time: Nov 01, 2023 10:59 AM Reporting Lab: [place] [facility] [address] [address] Performing Lab: [place] [facility] [address] [address] [facility] BASIC METABOLI C PANEL (non-fas ting) GLOMERULAR FILTRATION RATE/1.73 SQ M.PREDICTE D [VOLUME RATE/AREA] IN SERUM, PLASMA OR BLOOD BY CREATININE -BASED FORMULA (CKD-EPI 2020) 77 mL/min 60 12/05 Specimen Type: SERUM No comment entered. Ordering Provider: CARLOTTA HERRERA Report Released Date/Time: Nov 01, 2023 10:59 AM Reporting Lab: [place] [facility] [address] [address] Performing Lab: [place] [facility] [address] [address] [place] [facility] [place] [facility] CBC LEUKOCYTES [#/VOLUME] IN BLOOD BY AUTOMATED COUNT 4.54 10*3/uL 4.50 - 11.00 12/05 Specimen Type: BLOOD No comment entered. Ordering Provider: CARLOTTA HERRERA Report Released Date/Time: Nov 01, 2023 10:59 AM Reporting Lab: [facility] [place] [facility] [address] [address] Performing Lab: [facility] [place] [facility] [address] [address] [place] [facility] [place] [facility] CBC ERYTHROCYT ES [#/VOLUME] IN BLOOD BY AUTOMATED COUNT 4.13 10*6/uL 3.93 - 5.16 12/05 Specimen Type: BLOOD No comment entered. Ordering Provider: CARLOTTA HERRERA Report Released Date/Time: Nov 01, 2023 10:59 AM Reporting Lab: [facility] [place] [address] [address] Performing Lab: [facility] [place] [address] [address] [place] [facility] [place] [facility] CBC HEMOGLOBIN [MASS/VOLU ME] IN BLOOD 12.2 g/dL 12 - 15.2 12/05 Specimen Type: BLOOD No comment entered. Ordering Provider: CARLOTTA HERRERA Report Released Date/Time: Nov 01, 2023 10:59 AM Reporting Lab: [facility] [place] [address] [address] Performing Lab: [facility] [place] [facility] [address] [address] [place] [facility] [place] [facility] CBC HEMATOCRIT [VOLUME FRACTION] OF BLOOD BY AUTOMATED COUNT 38.4 36.6 - 45.6 12/05 Specimen Type: BLOOD No comment entered. Ordering Provider: CARLOTTA HERRERA Report Released Date/Time: Nov 01, 2023 10:59 AM Reporting Lab: [facility] [place] [address] [address] Performing Lab: [facility] [place] [facility] [address] [address] [facility] [place] [facility] CBC MCV [ENTITIC VOLUME] BY AUTOMATED COUNT 93.0 fL 82 - 99 12/05 Specimen Type: BLOOD No comment entered. Ordering Provider: CARLOTTA HERRERA Report Released Date/Time: Nov 01, 2023 10:59 AM Reporting Lab: [facility] [place] [facility] [address] [address] Performing Lab: [facility] [place] [facility] [address] [address] [facility] [place] [facility] CBC MCHC [MASS/VOLU ME] BY AUTOMATED COUNT 31.8 g/dL 30.8 - 35.1 12/05 Specimen Type: BLOOD No comment entered. Ordering Provider: CARLOTTA HERRERA Report Released Date/Time: Nov 01, 2023 10:59 AM Reporting Lab: [facility] [place] [facility] [address] [address] Performing Lab: [facility] [place] [facility] [address] [address] [facility] [place] [facility] CBC PLATELETS [#/VOLUME] IN BLOOD BY AUTOMATED COUNT 227 10*3/uL 140 - 360 12/05 Specimen Type: BLOOD No comment entered. Ordering Provider: CARLOTTA HERRERA Report Released Date/Time: Nov 01, 2023 10:59 AM Reporting Lab: [facility] [place] [facility] [address] [address] Performing Lab: [facility] [place] [facility] [address] [address] [facility] [place] [facility] CBC ERYTHROCYT E DISTRIBUTI ON WIDTH [RATIO] BY AUTOMATED COUNT 12.7 12.0 - 16.0 12/05 Specimen Type: BLOOD No comment entered. Ordering Provider: CARLOTTA HERRERA Report Released Date/Time: Nov 01, 2023 10:59 AM Reporting Lab: [facility] [place] [facility] [address] [address] Performing Lab: [place] [facility] [place] [facility] [address] [address] [facility] [place] [facility] CBC MCH [ENTITIC MASS] BY AUTOMATED COUNT 29.5 pg 26.2 - 32.6 12/05 Specimen Type: BLOOD No comment entered. Ordering Provider: CARLOTTA HERRERA Report Released Date/Time: Nov 01, 2023 10:59 AM Reporting Lab: [facility] [place] [facility] [address] [address] Performing Lab: [facility] [place] [facility] [address] [address] [facility] [place] [facility] LIPID PANEL, NON FASTING CHOLESTERO L [MASS/VOLU ME] IN SERUM OR PLASMA 201 mg/dL 12/05 H Specimen Type: SERUM No comment entered. Ordering Provider: CARLOTTA HERRERA Report Released Date/Time: Nov 01, 2023 10:59 AM Reporting Lab: [facility] [place] [facility] [address] [address] Performing Lab: [facility] [place] [facility] [address] [address] [facility] [place] [facility] LIPID PANEL, NON FASTING TRIGLYCERI DE [MASS/VOLU ME] IN SERUM OR PLASMA 67 mg/dL 0 - 150 12/05 Specimen Type: SERUM No comment entered. Ordering Provider: CARLOTTA HERRERA Report Released Date/Time: Nov 01, 2023 10:59 AM Reporting Lab: [facility] [place] [facility] [address] [address] Performing Lab: [place] [facility] [place] [facility] [address] [address] [facility] [place] [facility] LIPID PANEL, NON FASTING CHOLESTERO L IN LDL [MASS/VOLU ME] IN SERUM OR PLASMA BY CALCULAAYEO N 136 mg/dL 0 - 129 12/05 H Specimen Type: SERUM No comment entered. Ordering Provider: CARLOTTA HERRERA Report Released Date/Time: Nov 01, 2023 10:59 AM Reporting Lab: [facility] [place] [facility] [address] [address] Performing Lab: [facility] [place] [facility] [address] [address] [facility] [place] [facility] LIPID PANEL, NON FASTING CHOLESTERO L.TOTAL/CH OLESTEROL IN HDL [MASS RATIO] IN SERUM OR PLASMA 3.9 12/05 Specimen Type: SERUM No comment entered. Ordering Provider: CARLOTTA HERRERA Report Released Date/Time: Nov 01, 2023 10:59 AM Reporting Lab: [facility] [place] [facility] [address] [address] Performing Lab: [facility] [place] [facility] [address] [address] [facility] [place] [facility] LIPID PANEL, NON FASTING CHOLESTERO L IN HDL [MASS/VOLU ME] IN SERUM OR PLASMA 52 mg/dL 40 - 60 12/05 Specimen Type: SERUM No comment entered. Ordering Provider: CARLOTTA HERRERA Report Released Date/Time: Nov 01, 2023 10:59 AM Reporting Lab: [facility] [place] [facility] [address] [address] Performing Lab: [facility] [place] [facility] [address] [address] [facility] [place] [facility] LIVER FUNCTION PROTEIN [MASS/VOLU ME] IN SERUM OR PLASMA 6.2 g/dL 6.0 - 8.3 12/05 Specimen Type: SERUM No comment entered. Ordering Provider: CARLOTTA HERRERA Report Released Date/Time: Nov 01, 2023 10:59 AM Reporting Lab: [facility] [place] [facility] [address] [address] Performing Lab: [facility] [place] [facility] [address] [address] [facility] [place] [facility] LIVER FUNCTION ALBUMIN [MASS/VOLU ME] IN SERUM OR PLASMA 3.6 g/dL 3.5 - 5.0 12/05 Specimen Type: SERUM No comment entered. Ordering Provider: CARLOTTA HERRERA Report Released Date/Time: Nov 01, 2023 10:59 AM Reporting Lab: [facility] [place] [facility] [address] [address] Performing Lab: [facility] [place] [facility] [address] [address] [facility] [place] [facility] LIVER FUNCTION ALKALINE PHOSPHATAS E [ENZYMATIC ACTIVITY/V OLUME] IN SERUM OR PLASMA 87 U/L 40 - 150 12/05 Specimen Type: SERUM No comment entered. Ordering Provider: CARLOTTA HERRERA Report Released Date/Time: Nov 01, 2023 10:59 AM Reporting Lab: [place] [facility] [place] [address] [address] Performing Lab: [facility] [place] [facility] [address] [address] [facility] LIVER FUNCTION ASPARTATE AMINOTRANS FERASE [ENZYMATIC ACTIVITY/V OLUME] IN SERUM OR PLASMA 18 U/L 5 - 34 12/05 Specimen Type: SERUM No comment entered. Ordering Provider: CARLOTTA HERRERA Report Released Date/Time: Nov 01, 2023 10:59 AM Reporting Lab: [place] [facility] [place] [address] [address] Performing Lab[facility] [place] [facility] [address] [address] [facility] [place] [facility] LIVER FUNCTION ALANINE AMINOTRANS FERASE [ENZYMATIC ACTIVITY/V OLUME] IN SERUM OR PLASMA 16 U/L 12/05 Specimen Type: SERUM No comment entered. Ordering Provider: CARLOTTA HERRERA Report Released Date/Time: Nov 01, 2023 10:59 AM Reporting Lab: [facility] [place] [facility] [address] [address] Performing Lab: [facility] [place] [facility] [address] [address] [facility] LIVER FUNCTION BILIRUBIN. TOTAL [MASS/VOLU ME] IN SERUM OR PLASMA 0.5 mg/dL 0.2 - 1.2 12/05 Specimen Type: SERUM No comment entered. Ordering Provider: CARLOTTA HERRERA Report Released Date/Time: Nov 01, 2023 10:59 AM Reporting Lab: [facility] [place] [facility] [address] [address] Performing Lab: [facility] [place] [facility] [address] [address] [facility] OCCULT BLOOD FIT X1 SCREEN(I N-HOUSE) OCCULT BLOOD (FIT)#1 OF 1 Negative 01/10 Specimen Type: FECES No comment entered. Ordering Provider: CARLOTTA HERRERA Report Released Date/Time: January 02, 2023 10:52 AM Reporting Lab: [facility] [place] [facility] [address] [id number] Performing Lab: [facility] [address] [address] [facility] THYROID T4 FREE(FT4 ) THYROXINE (T4) FREE [MASS/VOLU ME] IN SERUM OR PLASMA 1.01 ng/dL 0.6 - 1.6 12/20 Specimen Type: SERUM No comment entered. Ordering Provider: CARLOTTA HERRERA Report Released Date/Time: Dec 01, 2022 10:14 AM Reporting Lab: [facility] [place] [facility] [address] [facility] [id number] Performing Lab[facility] [address] [facility] [address] [facility] Vital Signs Combined list of inpatient and outpatient Vital Signs from Department of Defense and Veterans Affairs, ranging from 12 months to all on record, depending upon the facility. Vital Sign Value Date Comments Source SYSTOLIC BLOOD PRESSURE 133 01/01/20 24 10:23:07 [facility] DIASTOLIC BLOOD PRESSURE [id number] 10:23:07 [facility] PULSE OXIMETRY 98 01/01/2024 10:23:07 [facility] WEIGHT 165 01/01/2024 10[facility]23:07 [facility] BMI 27 kg/m2 01/01/2024 10:23:07 [facility] En[facility] [id number] 06/05 [facility] OFF/OP EST DECEMBER X REQ PHY/QHP [id number] Diagnos is: ICD-10- CM Z23 Encount er for immuniz ation STEVEN ELLIS NON P 06/09 [facility] Encounter [id number] 06/13 [facility] Out[facility] Encounter [id number] 08/16 [facility]counter [id number] 08/31 [facility] En[facility] [id number] 09/21 [facility] [id number] 10/30 [facility] En[facility] [id number] 12/11 [facility] OFFICE O/P EST LOW 20 MIN [id number] Diagnos is: ICD-10- CM E78.5 Hyperli pidemia , unspeci fied Nader HERRERA 12/31 [facility] En[facility] [id number] 01/21 [facility] En[facility] [id number] 01/28 [facility] Encounter [id number] 02/28 [facility] En[facility] [id number] 03/21 [facility] [id number] 04/10 [facility] [id number] 04/29 [facility] Encounter [id number] 05/02 [facility] [id number] 06/12 [facility] Encounter [id number] 06/13 [facility] OFF/OP EST DECEMBER X REQ PHY/QHP [id number] Diagnos is: ICD-10- CM Z23 Encount er for immuniz Timur Martin 06/17 [facility] En[facility] [id number] 07/04 [facility] [id number] 07/05 [facility] [id number] 08/13 [facility]counter [id number] 08/29 [facility] Encounter [id number] 10/02 [facility] Encounter [id number] 10/24 [facility] Outpatient Encounter [id number] 11/14 [place] [facility] [place] [facility] Social History Combined list of available smoking, tobacco, and other social history from Department of Defense and Veterans Affairs facilities. Social History Type Response Date Comment Sourc e Tobacco smoking status NHIS VA-TOBACCO NEVER USED 01/01/2024 [facility] [place] [facility] History of tobacco use WI-TOBACCO FORMER USER 01/02/2023 [facility] [place] [facility] History of tobacco use WI-TOBACCO QUIT 15 YRS OR MORE 02/03/2021 [place] [facility] [place] [facility] History of tobacco use WI-TOBACCO QUIT 15 YRS OR MORE 01/24/2020 [place] [facility] [place] [facility] History of tobacco use [facility] 02[facility]16[facility]2018 [place] [facility] [place] [facility] History of tobacco use LIFETIME NON-TOBACCO USER 12/04/2017 [facility] [place] [facility] History of tobacco use LIFETIME NON-TOBACCO USER 02/14/2017 [place] [facility] [place] [facility] History of tobacco use LIFETIME NON-TOBACCO USER 02/02/2016 [place] [facility] [place] [facility] History of tobacco use LIFETIME NON-TOBACCO USER 11/24/2010 [facility] [place] [facility] Plan of Care List of future care activities from Department of Veterans Affairs facilities. Additional future care activities may be listed in the Assessment and Plan section. Date/Time Care Activity Care Activity Detail Facili ty 12/30/2024 AMBULATORY - MEDICINE AMBULATORY - MEDICI NE [facility] [place] [facility]
== END 2024-12-02 15:02 | disposition home or self-care (01) ==
PROVIDERS: PCP Internal Medicine; Visit Provider Internal Medicine
DX: H81.10 Benign paroxysmal vertigo, unspecified ear (principal)

== ENCOUNTER → 2024-12-02 13:44 | Outpatient (BNVA) | payer MEDICARE, OTHER, SELFPAY | PROVIDERS: PCP Internal Medicine; Visit Provider Internal Medicine | DX: H81.10 Benign paroxysmal vertigo, unspecified ear (principal) | CPT/HCPCS: 99202 ==

== ENCOUNTER 2024-12-06 12:13 | Outpatient (AMB) | payer MEDICARE, OTHER, SELFPAY ==
[2024-12-06 12:43] VITALS: BMI 26.5
--- NOTE | 2024-12-06 12:43 | MHC.OFFVIS ---
Vital Signs 12/06/24 12:43 Height 5 ft 5 in Weight 159 lb BMI 26.5 Intake Visit Reasons: ER - right Ankle Sprain, DOI 10/27/24 Intake Note: Anabella is a 79 year old female who presents today with a nurse from the [facility] [employer] for a evaluation of her right ankle pain, DOI 10/27/24. Patient states she was walking out of her house in tripped and fell forward and felt a pulling sensation in her right ankle. She states that her ankle is feeling better today with soem swelling. Patient is using an RAFAEL bandage with relief. IMPRESSION: Bimalleolar edema. No gross acute fracture or dislocation. Allergies lidocaine Allergy (Unknown, Verified 12/06/24 12:43) Weakness Percodan Allergy (Unknown, Uncoded 12/02/24 14:17) Dizziness Talwin Allergy (Unknown, Uncoded 12/02/24 14:17) Headache HPI HPI ER - right Ankle Sprain, DOI 10/27/24: Details: Ms. Wilson is a 79-year-old female who presents to the office today status post right ankle sprain that occurred on 10/27/2024. She sustained an inversion injury and presented to the emergency department where x-rays were obtained and negative for any acute fracture. She was given a tall walking boot off the shelf however the patient states this was too cumbersome to ambulate in. Therefore, she used an Rafael wrap to assist with ambulation and is also receiving acupuncture therapy for the right ankle. Her symptoms have gradually improved since the date of injury. [facility] Medical History (Updated 12/06/24 @ 13:09 by Marisol Major PA-C) BPPV (benign paroxysmal positional vertigo) Basal cell carcinoma Hyperlipidemia Rosacea Vertigo GERD (gastroesophageal reflux disease) Hypertension Family History (Updated 12/02/24 @ 14:30 by Lana Cardenas CMA) Maternal Aunt History of breast cancer Mother No problems noted. Father No problems noted. 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 No tenderness to palpation over the peroneal tendons, ATFL or deltoid. Patient is able to demonstrate dorsiflexion, plantar flexion, pronation and supination. Negative anterior drawer. Sensation intact. Pedal Pulse intact. Assessment & Plan Assessment & Plan (1) Right ankle sprain: Code(s): S93.401A - Sprain of unspecified ligament of right ankle, initial encounter Category: Medical Plan Ms. Wilson is a 79-year-old female who presents to the office today status post right ankle sprain that occurred on 10/27/2024. She sustained an inversion injury and presented to the emergency department where x-rays were obtained and negative for any acute fracture. She was given a tall walking boot off the shelf however the patient states this was too cumbersome to ambulate in. Therefore, she used an Rafael wrap to assist with ambulation and is also receiving acupuncture therapy for the right ankle. Her symptoms have gradually improved since the date of injury. On the office today, we discussed the role of physical therapy over the patient states she would like to hold off at this time as she is progressing well on her own. I did provide the patient with a new Rafael wrap and was applied to the right ankle. She will follow up here in, sooner if needed. X-rays of the right ankle which were obtained on 11/20/2024 were reviewed by me, Marisol Major PA-C, revealed no acute fracture or dislocation. Coding Level of Care Code New Pt Level 3 (89439) Diagnoses Right ankle sprain S93.401A
--- OUTSIDE RECORDS SUMMARY | 2024-12-06 13:02 | XMS_ITS | Continuity of Care Document ---
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 It does not [...] [facility] [place] [facility] Hyperlipidemia (SNOMED CT 39232331) Active Condition Nov 26, 2009 Entered By: MARIELENA GARRETT Comment: -- diet controlled [facility] [place] [facility] Vertigo (SNOMED CT 977718083) Active Condition [facility] [place] [facility] Diagnosis: ICD-10-CM Z23 Encounter for immunization Active Diagnosis [facility] [place] [facility] Diagnosis: ICD-10-CM E78.5 Hyperlipidemia, unspecified Active Diagnosis [place] [facility] [place] [facility] Medications Combined list of outpatient medications from Department [facility] and [facility] facilities.Medications provided include 1) outpatient medications from the last 15 months, and 2) patient-reported medications. Medication Details Route Status Patient Instructions Prescription Expires Prescription Number Last Dispense Date Ordering Provider Order Date Order Qty Source CHOLECALCIF DREA 25MCG (1,000UNIT) TAB TAKE ONE TABLET BY MOUTH DAILY ORAL ACTIVE CARLOTTA GARRETT 2016 [place] [facility] [place] [facility] LATANOPROST 0.005% SOLN,OPH INSTILL 1 DROP INTO EACH EYE ONCE DAILY OPHTHA LMIC ACTIVE TRISTAN HERRERA 2022 [place] [facility] [place] [facility] MAGNESIUM OXIDE 420MG TAB TAKE ONE TABLET BY MOUTH DAILY ORAL ACTIVE [facility] GRANDE [facility] MECLIZINE HCL 25MG TAB TAKE ONE-HALF TABLET BY MOUTH THREE TIMES DAILY NEEDED ORAL ACTIVE CARLOTTA GARRETT [facility] OMEGA-3-ACI D ETHYL ESTERS 1000MG CAP,ORAL TAKE 1 CAPSULE BY MOUTH DAILY ORAL ACTIVE CARLOTTA GARRETTIATimur S 2013 [facility] Allergies, Adverse Reactions, Alerts Combined list of allergies from Department of Defense and Veterans Affairs facilities. It does not include entries that were removed or entered in error. Substance Category Reaction Severity Reaction type Status Date Reported Comments Source BRIMONIDINE Propensity to adverse reactions to drug (finding) Blurring of visual image [facility] PERCODAN Propensity to adverse reactions to drug (finding) Nausea and vomiting active [facility] TALWIN Propensity to adverse reactions to drug (finding) Nausea and vomiting active [facility] TIMOLOL Propensity to adverse reactions to drug (finding) Fatigue active [facility] Immunizations Combined list of available immunizations from the Department of Defense and Veterans Affairs facilities. Immunization Series Date Given Administered By Site Reaction Lot Number CVX Code Drug Dehydrogenation Operator Status Comments Source COVID-19 (MODERNA), MRNA, LNP-S, PF, 50 MCG/0.5 ML (AGES 12+ YEARS) 2023 THEE ROSARIO H LEFT DELTO ID [id number] 312 complet ed [facility] INFLUENZA, UNSPECIFIED FORMULATION 2023 88 complet ed HISTORICA L INFORMATI ON - FROM PATIENT'S WRITTEN RECORD, [facility] COVID-19 (MODERNA), MRNA, LNP-S, PF, 50 MCG/0.5 ML (AGES 12+ YEARS) 1 2022 CARLOS ENRIQUE ELLIS LEFT DELTO ID [id number] 312 complet ed [facility] INFLUENZA, UNSPECIFIED FORMULATION 2022 LEFT DELTO ID 88 complet ed HISTORICA L INFORMATI ON - FROM PATIENT'S WRITTEN RECORD, Lot#: [id number] [facility] PNEUMOCOCCAL CONJUGATE PCV20, POLYSACCHARID E [id number] CONJUGATE, ADJUVANT, PF 2022 ANA CHAKRABORTY NE I LEFT DELTO ID [id number] 216 complet ed [facility] TD (ADULT), 2 LF TETANUS TOXOID, PRESERVATIVE FREE, ADSORBED 2022 MADELIN PARKA LEFT DELTO ID [id number] 09 complet ed Booster for Series, [facility] COVID-19 (MODERNA), MRNA, LNP-S, BIVALENT BOOSTER, PF, 50 MCG/0.5 ML OR 25MCG/0.25 ML DOSE 1 2021 229 complet ed MOD; [id number]; 3 [facility] INFLUENZA, UNSPECIFIED FORMULATION 2021 88 complet ed Booster for Series, HISTORICA L INFORMATI ON - FROM PATIENT'S WRITTEN RECORD, [facility] COVID-19 (MODERNA), MRNA, LNP-S, PF, 100 MCG OR 50 MCG DOSE 3 2020 207 complet ed MOD; [id number]; 2 [facility] INFLUENZA, UNSPECIFIED FORMULATION 2020 88 complet ed Booster for Series, HISTORICA L INFORMATI ON - FROM PATIENT'S WRITTEN RECORD, [facility] COVID-19 (MODERNA), MRNA, LNP-S, PF, 100 MCG/0.5 ML DOSE 2 2020 207 complet ed MOD; [id number]; 1 [facility] COVID-19 (MODERNA), MRNA, LNP-S, PF, 100 MCG/0.5 ML DOSE 1 01/29/ 2021 207 complet ed MOD; [id number]; 1 [facility] [place] [...] FLU,3 YRS (HISTORICAL) 2011 88 complet ed [facility] FLU,3 YRS (HISTORICAL) 2010 88 complet ed [facility] [place] TD(ADULT) UNSPECIFIED FORMULATION 2010 139 complet ed Site: Left Deltoid [facility] [place] FLU,3 YRS (HISTORICAL) 2009 88 complet ed [facility] [place] [...] January 01, 2024 10:37 AM Reporting Lab: [facility] [place] [facility] [address] [facility] [address] Performing Lab: [facility] [place] [facility] [address] [facility] [address] [facility] [place] [facility] THYROID T4 FREE(FT4 ) (WROX) THYROXINE (T4) FREE [MASS/VOLU ME] IN SERUM OR PLASMA 0.95 ng/dL 0.6 - 1.6 12/05 Specimen Type: SERUM No comment entered. Ordering Provider: CARLOTTA HERRERA Report Released Date/Time: Nov 01, 2023 10:59 AM Reporting Lab: [facility] [place] [facility] [address] [facility] [address] Performing Lab: [facility] [place] [facility] [address] [facility] [place] [address] [facility]ITALRTHOM[facility]ERN [place] [facility] HEMOGLOB IN A1C PANEL HEMOGLOBIN A1C/HEMOGL OBIN.TOTAL [...] Nov 01, 2023 10:59 AM Reporting Lab: [facility]ITALRTHOMASVIL[facility]ENTERN [facility]OSPITALUSE[address] [address] Performing Lab: [facility]PITALRTHOMASVILLE [facility] CENTERN [facility]OSPITALUSE[address] [address] [facility]N [facility]OSPITALUSE [facility] CBC LEUKOCYTES [#/VOLUME] IN BLOOD BY AUTOMATED COUNT 4.54 10*3/uL 4.50 - 11.00 12/05 Specimen Type: BLOOD No comment entered. Ordering Provider: CARLOTTA HERRERA Report Released Date/Time: Nov 01, 2023 10:59 AM Reporting Lab: [facility]OSPITALRL [facility]N [facility]ITALUSELINCOLN [facility]OSPITAL [address] [facility] [address] Performing Lab: [facility]ITALRL [facility]ITALN [facility]OSPITALUSE[address] [address] [facility]N [facility]OSPITALUSE [facility] CBC ERYTHROCYT ES [#/VOLUME] IN BLOOD BY AUTOMATED COUNT 4.13 10*6/uL 3.93 - 5.16 12/05 Specimen Type: BLOOD No comment entered. Ordering Provider: CARLOTTA HERRERA Report Released Date/Time: Nov 01, 2023 10:59 AM Reporting Lab: [facility]PITALRL [facility]ITALN [facility]PITALUSELINCOLN HOSPITAL [address] [facility] [address] Performing Lab: [facility]PITALRL [facility]ITALN [facility]OSPITALUSE[address] [address] [facility]ITALRTHOM[facility]ERN [facility]ITALUSE [facility] CBC HEMOGLOBIN [MASS/VOLU ME] IN BLOOD 12.2 g/dL 12 - 15.2 12/05 Specimen Type: BLOOD No comment entered. Ordering Provider: CARLOTTA HERRERA Report Released Date/Time: Nov 01, 2023 10:59 AM Reporting Lab: [facility] [place] [facility] [address] [facility] [address] Performing Lab: [facility] [place] [facility] [address] [facility] [address] [facility] [place] [facility] CBC HEMATOCRIT [VOLUME FRACTION] OF BLOOD BY AUTOMATED COUNT 38.4 36.6 - 45.6 12/05 Specimen Type: BLOOD No comment entered. Ordering Provider: CARLOTTA HERRERA Report Released Date/Time: Nov 01, 2023 10:59 AM Reporting Lab: [facility] [place] [facility] [address] [facility] [address] Performing Lab: [facility] [place] [facility] [address] [facility] [address] [facility] [place] [facility] CBC MCV [ENTITIC VOLUME] BY AUTOMATED COUNT 93.0 fL 82 - 99 12/05 Specimen Type: BLOOD No comment entered. Ordering Provider: CARLOTTA HERRERA Report Released Date/Time: Nov 01, 2023 10:59 AM Reporting Lab: [facility] [place] [address] [address] Performing Lab: [facility] [place] [facility] [address] [facility] [address] [facility] [place] [facility] CBC MCHC [MASS/VOLU ME] BY AUTOMATED COUNT 31.8 g/dL 30.8 - 35.1 12/05 Specimen Type: BLOOD No comment entered. Ordering Provider: CARLOTTA HERRERA Report Released Date/Time: Nov 01, 2023 10:59 AM Reporting Lab: [facility] [place] [facility] [address] [facility] [address] Performing Lab: [facility] [place] [address] [address] [facility] [place] [facility] CBC PLATELETS [#/VOLUME] IN BLOOD BY AUTOMATED COUNT 227 10*3/uL 140 - 360 12/05 Specimen Type: BLOOD No comment entered. Ordering Provider: CARLOTTA HERRERA Report Released Date/Time: Nov 01, 2023 10:59 AM Reporting Lab: [place] [facility] [facility] [address] [facility] [address] Performing Lab: [place] [facility] [facility] [address] [facility] [address] [place] [facility] [facility] CBC ERYTHROCYT E DISTRIBUTI ON WIDTH [RATIO] BY AUTOMATED COUNT 12.7 12.0 - 16.0 12/05 Specimen Type: BLOOD No comment entered. Ordering Provider: CARLOTTA HERRERA Report Released Date/Time: Nov 01, 2023 10:59 AM Reporting Lab: [facility]ITALRL [place] [place] [address] [address] Performing Lab: [place] [facility] [facility] [address] [facility] [address] [facility]PITALRL [place]STRN [place] [facility] CBC MCH [ENTITIC MASS] BY AUTOMATED COUNT 29.5 pg 26.2 - 32.6 12/05 Specimen Type: BLOOD No comment entered. Ordering Provider: CARLOTTA HERRERA Report Released Date/Time: Nov 01, 2023 10:59 AM Reporting Lab: [facility]PITALRL [place] [place] [address] [address] Performing Lab: [place] [facility] [facility] [address] [facility] [address] [facility]OSPITALRL [place]N [place] [facility] BASIC METABOLI C PANEL (non-fas ting) UREA NITROGEN [MASS/VOLU ME] IN SERUM OR PLASMA 25 mg/dL 7 - 25 12/05 Specimen Type: SERUM No comment entered. Ordering Provider: CARLOTTA HERRERA Report Released Date/Time: Nov 01, 2023 10:59 AM Reporting Lab: [facility]ITALRL [place] [place] [address] [address] Performing Lab: [place] [facility]OSPITALUSETS [facility] [address] [facility] [address] [facility] HOSPITALRUAB [facility] HOSPITALTRN [facility] HOSPITALUSE [facility] BASIC METABOLI C PANEL (non-fas ting) GLUCOSE [MASS/VOLU ME] IN SERUM OR PLASMA 84 mg/dL 65 - 100 12/05 Specimen Type: SERUM No comment entered. Ordering Provider: CARLOTTA HERRERA Report Released Date/Time: Nov 01, 2023 10:59 AM Reporting Lab: [facility] HOSPITALRUAB CALL[facility]YE HOSPITALTRN [facility]OSPITALUSELINCOLN HOSPITAL [address] [facility] [address] Performing Lab: [facility] HOSPITALRTHOMASVILLE REGIONAL MEDICAL CENTERN [facility] [address] [facility] [address] [facility]ITALN [facility] BASIC METABOLI C PANEL (non-fas ting) SODIUM [MOLES/VOL UME] IN SERUM OR PLASMA 142 mmol/L 135 - 145 12/05 Specimen Type: SERUM No comment entered. Ordering Provider: CARLOTTA HERRERA Report Released Date/Time: Nov 01, 2023 10:59 AM Reporting Lab: [facility] HOSPITALRTHOMASVILLE REGIONAL MEDICAL CENTERN [facility]OSPITALUSELINCOLN HOSPITAL [address] [facility] [address] Performing Lab: [facility]OSPITALRTHOMASVILLE REGIONAL MEDICAL CENTERN [facility] HOSPITALUSELINCOLN HOSPITAL [address] [facility] [address] [facility]ITALN [facility] BASIC METABOLI C PANEL (non-fas ting) POTASSIUM [MOLES/VOL UME] IN SERUM OR PLASMA 4.3 mmol/L 3.5 - 5.0 12/05 Specimen Type: SERUM No comment entered. Ordering Provider: CARLOTTA HERRERA Report Released Date/Time: Nov 01, 2023 10:59 AM Reporting Lab: [facility]OSPITALRUAB CALL[facility] HOSPITALTRN [facility]OSPITALUSELINCOLN HOSPITAL [address] [facility] [address] Performing Lab: [facility]OSPITALRTHOMASVILLE REGIONAL MEDICAL CENTERN [facility] HOSPITALUSELINCOLN HOSPITAL [address] [facility] [address] [facility]N [facility] BASIC METABOLI C PANEL (non-fas ting) CHLORIDE [MOLES/VOL UME] IN SERUM OR PLASMA 106 mmol/L 100 - 110 12/05 Specimen Type: SERUM No comment entered. Ordering Provider: CARLOTTA HERRERA Report Released Date/Time: Nov 01, 2023 10:59 AM Reporting Lab: [facility] HOSPITALRL TRN [address] [address] Performing Lab: [facility] HOSPITALRL [facility]ITALN [address] [address] [facility]N [facility] BASIC METABOLI C PANEL (non-fas ting) CARBON DIOXIDE, TOTAL [MOLES/VOL UME] IN SERUM OR PLASMA 28 meq/L 20 - 30 12/05 Specimen Type: SERUM No comment entered. Ordering Provider: CARLOTTA HERRERA Report Released Date/Time: Nov 01, 2023 10:59 AM Reporting Lab: [facility]OSPITALRL [facility]OSPITALN [address] [address] Performing Lab: [facility] HOSPITALRTHOMASVILLE REGIONAL MEDICAL CENTERN [address] [address] [facility]OSPITALRTHOMASVILLE REGION[facility] MEDICAL CENTERN [facility] BASIC METABOLI C PANEL (non-fas ting) CREATININE [MASS/VOLU ME] IN SERUM OR PLASMA 0.78 mg/dL 0.50 - 1.40 12/05 Specimen Type: SERUM No comment entered. Ordering Provider: CARLOTTA HERRERA Report Released Date/Time: Nov 01, 2023 10:59 AM Reporting Lab: [facility] HOSPITALRTHOMASVILLE REGIONAL MEDICAL CENTERN [address] [address] Performing Lab: [facility] HOSPITALRL TRN [address] [address] [facility]OSPITALRTHOMASVILLE REGIONAL MEDICAL CENTERN [facility] BASIC METABOLI C PANEL (non-fas ting) GLOMERULAR FILTRATION RATE/1.73 SQ M.PREDICTE D [VOLUME RATE/AREA] IN SERUM, PLASMA OR BLOOD BY CREATININE -BASED FORMULA (CKD-EPI 2020) 77 mL/min 60 12/05 Specimen Type: SERUM No comment entered. Ordering Provider: CARLOTTA HERRERA Report Released Date/Time: Nov 01, 2023 10:59 AM Reporting Lab: [facility]OSPITALRL [facility]OS[facility]ITALN [address] [address] Performing Lab: [facility] [place] [facility] [address] [facility] [address] [place] [facility] [place] [facility] TSH THYROTROPI N [UNITS/VOL UME] IN SERUM OR PLASMA 1.11 u[IU]/mL 0.35 - 5.00 12/05 Specimen Type: SERUM No comment entered. Ordering Provider: CARLOTTA HERRERA Report Released Date/Time: Nov 01, 2023 10:59 AM Reporting Lab: [facility] [place] [facility] [address] [facility] [address] Performing Lab: [place] [facility] [place] [facility] [address] [facility] [address] [facility]ITALRL [place]N [place] [facility] LIPID PANEL, NON FASTING CHOLESTERO L [MASS/VOLU ME] IN SERUM OR PLASMA 201 mg/dL 12/05 H Specimen Type: SERUM No comment entered. Ordering Provider: CARLOTTA HERRERA Report Released Date/Time: Nov 01, 2023 10:59 AM Reporting Lab: [facility]OSPITALRL [place] [place] [facility] [address] [facility] [address] Performing Lab: [place] [facility] [place] [facility] [address] [facility] [address] [facility]ITALRL [place]N [place] [facility] LIPID PANEL, NON FASTING TRIGLYCERI DE [MASS/VOLU ME] IN SERUM OR PLASMA 67 mg/dL 0 - 150 12/05 Specimen Type: SERUM No comment entered. Ordering Provider: CARLOTTA HERRERA Report Released Date/Time: Nov 01, 2023 10:59 AM Reporting Lab: [place] [facility] [place] [facility] [address] [facility] [address] Performing Lab: [place] [facility] [place] [facility] [address] [facility] [address] [place] [facility] [facility] LIPID PANEL, NON FASTING CHOLESTERO L IN LDL [MASS/VOLU ME] IN SERUM OR PLASMA BY CALCCHRISSY N 136 mg/dL 0 - 129 12/05 H Specimen Type: SERUM No comment entered. Ordering Provider: CARLOTTA HERRERA Report Released Date/Time: Nov 01, 2023 10:59 AM Reporting Lab: [facility] [place] [place] [facility] [address] [facility] [address] Performing Lab: [facility] [place] [facility] [address] [facility] [address] [facility] [place] [facility] LIPID PANEL, NON FASTING CHOLESTERO L.TOTAL/CH OLESTEROL IN HDL [MASS RATIO] IN SERUM OR PLASMA 3.9 12/05 Specimen Type: SERUM No comment entered. Ordering Provider: CARLOTTA HERRERA Report Released Date/Time: Nov 01, 2023 10:59 AM Reporting Lab: [facility] [place] [facility] [address] [facility] [address] Performing Lab: [facility] [place] [place] [facility] [address] [facility] [address] [facility] [place] [facility] LIPID PANEL, NON FASTING CHOLESTERO L IN HDL [MASS/VOLU ME] IN SERUM OR PLASMA 52 mg/dL 40 - 60 12/05 Specimen Type: SERUM No comment entered. Ordering Provider: CARLOTTA HERRERA Report Released Date/Time: Nov 01, 2023 10:59 AM Reporting Lab: [facility] [place] [facility] [address] [facility] [address] Performing Lab: [facility] [place] [facility] [address] [facility] [address] [facility] [place] [facility] LIVER FUNCTION PROTEIN [MASS/VOLU ME] IN SERUM OR PLASMA 6.2 g/dL 6.0 - 8.3 12/05 Specimen Type: SERUM No comment entered. Ordering Provider: CARLOTTA HERRERA Report Released Date/Time: Nov 01, 2023 10:59 AM Reporting Lab: [facility] [place] [facility] [address] [facility] [address] Performing Lab: [facility] [place] [facility] [address] [facility] [address] [facility] [place] [place] [facility] LIVER FUNCTION ALBUMIN [MASS/VOLU ME] IN SERUM OR PLASMA 3.6 g/dL 3.5 - 5.0 12/05 Specimen Type: SERUM No comment entered. Ordering Provider: CARLOTTA HERRERA Report Released Date/Time: Nov 01, 2023 10:59 AM Reporting Lab: [facility] [place] [facility] [address] [facility] [address] Performing Lab: [facility] [place] [facility] [address] [facility] [address] [facility] [place] [place] [facility] LIVER FUNCTION ALKALINE PHOSPHATAS E [ENZYMATIC ACTIVITY/V OLUME] IN SERUM OR PLASMA 87 U/L 40 - 150 12/05 Specimen Type: SERUM No comment entered. Ordering Provider: CARLOTTA HERRERA Report Released Date/Time: Nov 01, 2023 10:59 AM Reporting Lab: [place] [address] [address] Performing Lab: [place] [facility] [place] [place] [facility] [address] [facility] [address] [facility]PITALRL WSTRN [place] [facility] LIVER FUNCTION ASPARTATE AMINOTRANS FERASE [ENZYMATIC ACTIVITY/V OLUME] IN SERUM OR PLASMA 18 U/L 5 - 34 12/05 Specimen Type: SERUM No comment entered. Ordering Provider: CARLOTTA HERRERA Report Released Date/Time: Nov 01, 2023 10:59 AM Reporting Lab: [place] [facility] [address] [address] Performing Lab: [place] [facility] [place] [facility] [address] [facility] [address] [facility]ITALRL [facility]STRN [place] [facility] LIVER FUNCTION ALANINE AMINOTRANS FERASE [ENZYMATIC ACTIVITY/V OLUME] IN SERUM OR PLASMA 16 U/L 12/05 Specimen Type: SERUM No comment entered. Ordering Provider: CARLOTTA HERRERA Report Released Date/Time: Nov 01, 2023 10:59 AM Reporting Lab: [facility] [place] [facility] [address] [facility] [address] Performing Lab: [place] [facility] [place] [facility] [address] [facility] [address] [facility]ITALN [facility] LIVER FUNCTION BILIRUBIN. TOTAL [MASS/VOLU ME] IN SERUM OR PLASMA 0.5 mg/dL 0.2 - 1.2 12/05 Specimen Type: SERUM No comment entered. Ordering Provider: CARLOTTA HERRERA Report Released Date/Time: Nov 01, 2023 10:59 AM Reporting Lab[facility] [place] [facility] [address] [facility] [address] Performing Lab: [facility] [place] [facility] [address] [facility] [address] [facility] OCCULT BLOOD FIT X1 SCREEN(I N-HOUSE) OCCULT BLOOD (FIT)#1 OF 1 Negative 01/10 Specimen Type: FECES No comment entered. Ordering Provider: CARLOTTA HERRERA Report Released Date/Time: January 02, 2023 10:52 AM Reporting Lab: [facility] [place] [facility] [address] [facility] [address] Performing Lab: [facility] [address] [facility] [address] [facility] THYROID T4 FREE(FT4 ) THYROXINE (T4) FREE [MASS/VOLU ME] IN SERUM OR PLASMA 1.01 ng/dL 0.6 - 1.6 12/20 Specimen Type: SERUM No comment entered. Ordering Provider: CARLOTTA HERRERA Report Released Date/Time: Dec 01, 2022 10:14 AM Reporting Lab: [facility] [place] [facility] [address] [facility] [address] Performing Lab: [facility]ITAL[facility] [address] [facility] [phone] [facility] Vital Signs Combined list of inpatient and outpatient Vital Signs from Department of Defense and Veterans Affairs, ranging from 12 months to all on record, depending upon the facility. Vital Sign Value Date Comments Source SYSTOLIC BLOOD PRESSURE 133 01/01/20 24 10:23:07 [facility] DIASTOLIC BLOOD PRESSURE [id number] [...] Source [facility] OFF/OP EST DECEMBER X REQ PHY/QHP [id number] Diagnos is: ICD-10- CM Z23 Encount er for immuniz atSTEVEN Shah 06/09 [facility] Encounter [id number] 06/13 [facility] Encounter [id number] 08/16 [facility] Encounter [id number] 08/31 [facility] Encounter [id number] 09/21 [facility] Encounter [id number] 10/30 [facility] Encounter [id number] 12/11 [facility] OFFICE O/P EST LOW 20 MIN [id number] Diagnos is: ICD-10- CM E78.5 Hyperli pidemia , unspeci fied Nader HERRERA ILLIATimur J 12/31 [facility] Encounter [id number] 01/21 [facility] Encounter [id number] 01/28 [facility] Encounter [id number] 02/28 [facility] Encounter [id number] 03/21 [facility] Encounter [id number] 04/10 [facility] Encounter [id number] 04/29 [facility] Out[facility] Encounter [id number] 05/02 [facility] Encounter [id number] 06/12 [facility] Encounter [id number] 06/13 [facility] OFF/OP EST DECEMBER X REQ PHY/QHP [id number] Diagnos is: ICD-10- CM Z23 Encount er for immuniz ryne Timur ROSARIO 06/17 [facility] Encounter [id number] 07/04 [facility] Encounter [id number] 07/05 [facility] Out[facility] Encounter [id number] 08/13 [facility] Out[facility] Encounter [id number] 08/29 [facility] Out[facility] Encounter [id number] 10/02 [facility] Out[facility] Encounter [id number] 10/24 [facility] Out[facility] Encounter [id number] 11/14 [facility] Outpatient Encounter [id number] 12/03 [place] [facility] [place] [facility] Social History Combined list of available smoking, tobacco, and other social history from Department of Defense and Veterans Affairs facilities. Social History Type Response Date Comment Sourc e Tobacco smoking status NHIS VA-TOBACCO NEVER USED 01/01/2024 [place] [facility] [place] [facility] History of tobacco use FL-TOBACCO FORMER USER 01/02/2023 [place] [facility] [place] [facility] History of tobacco use FL-TOBACCO FORMER USER 02/03/2021 [place] [facility] [place] [facility] of [facility] 01/24/2020 [place] [facility] [place] [facility] History of tobacco use FL-TOBACCO NEVER USED 02/16/2018 [place] [facility] [place] [facility] History of tobacco use LIFETIME NON-TOBACCO USER 12/04/2017 [facility] [place] [facility] History of tobacco use LIFETIME NON-TOBACCO USER 02/14/2017 [place] [facility] [place] [facility] History of tobacco use LIFETIME NON-TOBACCO USER 02/02/2016 [place] [facility] [place] [facility] History of tobacco use LIFETIME NON-TOBACCO USER 11/24/2010 [place] [facility] [place] [facility] Plan of Care List of future care activities from Department of Veterans Affairs facilities. Additional future care activities may be listed in the Assessment and Plan section. Date/Time Care Activity Care Activity Detail Facili ty 12/30/2024 AMBULATORY - MEDICINE AMBULATORY - [place]ICI [place] [facility] [place] [facility]
--- OUTSIDE RECORDS SUMMARY | 2024-12-06 13:02 | XMS_ITS ---
Author Name [facility] [place] Organization [facility] [place] Address [address] [place] [address] Care Team Providers Care Interior Plant Caretaker Name Role Phone TRISTAN HERRERA [facility] Insurance Providers: All historical and current Section Date Range: From patient's date of to the date document was created. This section includes the names of all active insurance providers for the patient. Insurance Provider Type of Coverage Plan Name Start of Policy Coverage End of Policy Coverage Group Number Member ID Insurance Provider's Telephone Number Policy Stearns's Name Patient's Relationship to Policy Stearns MEDICARE (WNR) MEDICARE (M) PART A Apr 21, 2010 PART A [id number] JERONIMO REYES PATIENT MEDICARE (WNR) MEDICARE (M) PART B Apr 21, 2010 PART B [id number] JERONIMO REYES PATIENT MEDICARE (WNR) MEDICARE (M) PART A Apr 21, 2010 PART A [id number] JERONIMO REYES PATIENT MEDICARE (WNR) MEDICARE (M) PART B Apr 21, 2010 PART B [id number] JERONIMO REYES PATIENT FOR LIFE TFL* Apr 21, 2010 [id number] JERONIMO REYES PATIENT Selected Encounter This section includes the information on record at [place] for the Encounter. Date/Time Encounter Type Encounter Description Reason Pro vider Source Dec 03, 2024 11:21 AM Outpatient Encounter ADMIN PAT ACTIVTIES (ELZACT) IHE Encounter Template Text not used by [place] Plan of Treatment: Future Appointments (+ 6 months) and Future Tests (+/- 45 days) The Plan of Treatment section includes future care activities for the patient from all [place] treatmentfacilities. This section includes future appointments and future orders which are active, pending or scheduled. Future Appointments This section includes appointments that were scheduled to occur 6 months from the date of the Encounter, up to a maximum of 20 appointments. The data comes from all [facility] facilities. Appointment Date/Time Appointment Type Appointme nt Facility Name December 30, 2024 11:00 AM AMBULATORY - MEDICINE [facility] Active, Pending, and Scheduled Orders This section includes a listing of several types of active, pending, and scheduled orders, including clinic medications orders, diagnostic test orders, procedure orders and consult orders; where the start date of the order is 45 days before the date of the Encounter or 45 days after the date of theEncounter. The data comes from all [facility]. Test Date/Time Test Type Test Details Facility Name Dec 03, 2024 12:00 AM Laboratory - Chemi stry Order CBC BLOOD (LAV-BLOOD) [facility] Dec 03, 2024 12:00 AM Laboratory - Chemi stry Order BASIC METABOLIC PANEL (non-fasting) BLOOD (SST-SERUM) [facility] Dec 03, 2024 12:00 AM Laboratory - Chemi stry Order LIPID PANEL, NON FASTING BLOOD (SST-SERUM) [facility] Dec 03, 2024 12:00 AM Laboratory - Chemi stry Order LIVER FUNCTION BLOOD (SST-SERUM) [facility] Social History: Smoking Status (Most current) and Tobacco Use (All prior to encounter date) This section includes the most current, and the historical, smoking and tobacco- related health factors from the [place] facility where the Encounter took place. Current Smoking Status This section includes the most current smoking, or tobacco-related health factor, from the [place] facility where the Encounter took place. Date/Time Current Smoking Status Comment Marci ity January 01, 2024 10:30 AM VA-TOBACCO NEVER USED [place] [facility] [place] [facility] Tobacco Use History This section includes a history of the smoking, or tobacco-related health factors, that were collected on or before the date of the Encounter. The data comes from the [place] facility where the Encounter took place. Date/Time Smoking Status/Tobacco Use Comment Sunil acility January 02, 2023 10:30 AM VA-TOBACCO FORMER USER [facility] [place] [facility] January 02, 2023 10:30 AM VA-TOBACCO QUIT 15 YRS OR MORE [facility] [place] [facility] Feb 03, 2021 10:30 AM VA-TOBACCO FORMER USER [facility] [place] [facility] Feb 03, 2021 10:30 AM VA-TOBACCO QUIT 15 YRS OR MORE [facility] [place] [facility] Jan 24, 2020 11:28 AM VA-TOBACCO FORMER USER [facility] [place] [facility] Jan 24, 2020 11:28 AM VA-TOBACCO QUIT 15 YRS OR MORE [facility] [place] [facility] Feb 16, 2018 01:31 PM VA-TOBACCO NEVER USED [facility] [place] [facility] Dec 04, 2017 11:25 AM LIFETIME NON-TOBACCO USER [facility] [place] [facility] Feb 14, 2017 10:22 AM LIFETIME NON-TOBACCO USER [facility] [place] [facility] Feb 02, 2016 09:30 AM LIFETIME NON-TOBACCO USER [facility] [place] [facility] Nov 24, 2010 09:37 AM LIFETIME NON-TOBACCO USER [facility] [place] [facility] Encounter Notes: All associated encounter notes This section contains the clinical notes associated to the Encounter. Date/Time Encounter Note(s) Provider Source Dec 03, 2024 11:21 AM ADMINISTRATIVE NOT E: LOCAL TITLE: CCC: SCHEDULING ADMINISTRATION STANDARD TITLE: ADMINISTRATIVE NOTE DATE OF NOTE: DEC 03, 2024@11:21:42 ENTRY DATE: DEC 03, 2024@11:21:42 AUTHOR: LARRY DIAL EXP COSIGNER: URGENCY: STATUS: COMPLETED CCC: SCHEDULING ADMINISTRATION Has ADDENDA Caller Verification Call Back Number: [phone] Emergency Contact: SISTER RUPERT Emergency Contact Caller/Recipient Relation to Patient: Self Caller Name: JERONIMO REYES Administrative Administrative Note Reason: Other Administrative Note Comments: Patient called requesting lab orders to be enter prior to PCP appt on 12/25/2024. Any questions she can be reached at [phone]. IMPORTANT: This note was created by [facility] Clinical Contact Center staff. Please do not alert the staff member by adding them as a signer for future communications. Alerts are not monitored by this user. /cy/ LARRY DIAL PROGRAM SUPPORT ASSISTAT Signed: 12/03/2024 11:21 Receipt Acknowledged By: * AWAITING SIGNATURE * AMANDA PONCE 12/03/2024 11:55 /cy/ MONSE PARK MSN, RN, CNL Primary Care RN 12/03/2024 ADDENDUM STATUS: COMPLETED Labs ordered /cy/ MONSE PARK MSN, RN, CNL Primary Care RN Signed: 12/03/2024 11:55 LARRY DIAL [place] [facility]
== END 2024-12-06 13:10 | disposition home or self-care (01) ==
LOC: HO.HOS 12:13
PROVIDERS: PCP Internal Medicine; Visit Provider Physician Assistant
DX: S93.401A Sprain of unspecified ligament of right ankle, initial encounter (principal)
CPT/HCPCS: 99203

== ENCOUNTER → 2024-12-06 12:13 | Outpatient (BNVA) | payer MEDICARE, OTHER, SELFPAY | PROVIDERS: PCP Internal Medicine; Visit Provider Physician Assistant | DX: S93.401A Sprain of unspecified ligament of right ankle, initial encounter (principal) | CPT/HCPCS: 99202 ==

== ENCOUNTER 2025-03-03 14:37 | Outpatient (AMB) | payer MEDICARE, OTHER, SELFPAY ==
[2025-03-03 14:42] VITALS: BP 120/68; PULSE 84; TEMP 36.3; O2SAT 97; BMI 28.5
--- NOTE | 2025-03-03 14:42 | AM.OFFWIN_ITS ---
Intake Vital Signs 03/03/25 14:42 Height 5 ft 5 in Weight 171 lb BMI 28.5 BP 120/68 Blood Pressure Location Lt brachial Position Sitting Pulse 84 Pulse Source Pulse Oximeter Temp 97.3 F Temp Source Oral Pulse Oximetry (%) 97 Oxygen Delivery Method Room Air Intake Visit Reasons: EP LT Knee swelling/injury Intake Note: presents with left knee pain since falling 01/26/25 Patient Tobacco Use Status: Former Tobacco user Allergies lidocaine Allergy (Unknown, Verified 03/03/25 14:44) Weakness Percodan Allergy (Unknown, Uncoded 12/02/24 14:17) Dizziness Talwin Allergy (Unknown, Uncoded 12/02/24 14:17) Headache Do you need a note to return to daycare/school/sports/work: No HPI HPI Comments History of Present Illness Details History of Present Illness - The patient is a 79-year-old female pr esenting with musculoskeletal issues following multiple falls. - In October, the patient experienced a fa ll after tripping over a mat, resulting in a right ankle sprain. - An x-ray at [facility] confirmed no fractures, and orthopedic evaluation ruled out ankle dislocation. - The patient has a history of osteoarth ritis affecting her knees and ankles, contributing to stiffness and soreness. - On January 26, the patient fell in a [employer] parking lot while attempting to retrieve a runaway shopping cart, landing on her left side. - Post-fall, the patient applied heat an d ice to the affected areas and engaged in acupuncture therapy, which noted swelling in the knee. - The patient reports frequent falls and difficulty standing for prolonged periods due to arthritis. - She has been advised to pursue physica l therapy for both knees and ankles but has delayed due to recent injuries. Physical Exam Physical Exam General: Cooperative, healthy appearing, comfortable, no acute distress and well developed Orientation: Patient oriented x3 Limitations: No limitations Head: Normal to inspection Ears: Hearing grossly normal bilaterally Face and sinus: Normal facial exam Eyes: Appearance normal, both eyes and all related structures Neck: Normal visual inspection, full ROM Respiratory: Normal respiratory effort and able to speak in complete sentences. Skin: No rashes or lesions noted Neuro: Patient oriented x3, CN 2-12 intact, gait normal Back/spine: no TTP cervical, thoracic or lumbar spine, Extremities: [facility] Medical History (Updated 03/03/25 @ 15:22 by Stephanie Parra PA-C) BPPV (benign paroxysmal positional vertigo) Basal cell carcinoma Hyperlipidemia Rosacea Vertigo GERD (gastroesophageal reflux disease) Hypertension Family History (Updated 12/02/24 @ 14:30 by Lana Cardenas MA) Maternal Aunt History of breast cancer Mother No problems noted. Father No problems noted. 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 Cognitive needs: No Hearing needs: No Vision needs: Yes (rx glasses) Review of Systems Const All systems reviewed & are unremarkable except as noted in HPI and below Physical Exam Vital Signs: Last Vital Signs Temp 97.3 F 03/03/25 14:42 Pulse 84 03/03/25 14:42 BP 120/68 03/03/25 14:42 Pulse Ox 97 03/03/25 14:42 Oxygen Delivery Method Room Air 03/03/25 14:42 BMI result Body Mass Index 28.5 Assessment & Plan Assessment & Plan (1) Right ankle sprain: Code(s): S93.401A - Sprain of unspecified ligament of right ankle, initial encounter Qualifiers: Encounter type: subsequent encounter Involved ligament of ankle: unspecified ligament Qualified Code(s): S93.401D - Sprain of unspecified ligament of right ankle, subsequent encounter Plan: Plan Patient was informed and verbally consented to the use of an ambient scribe for clinic note documentation during this visit. - Recommend physical therapy to improve joint function and reduce stiffness. - Continue acupuncture therapy as adjunctive treatment for symptom relief. - Patient should evaluate home environment for fall risks and consider modifications to improve safety. - Encourage use of assistive devices as needed for stability. (2) Frequent falls: Code(s): R29.6 - Repeated falls Plan: aS above (3) Osteoarthritis of both ankles: Code(s): M19.071 - Primary osteoarthritis, right ankle and foot; M19.072 - Primary osteoarthritis, left ankle and foot Qualifiers: Osteoarthritis type: unspecified Qualified Code(s): M19.071 - Primary osteoarthritis, right ankle and foot; M19.072 - Primary osteoarthritis, left ankle and foot Plan: as above (4) Osteoarthritis of knees, bilateral: Code(s): M17.0 - Bilateral primary osteoarthritis of knee Qualifiers: Osteoarthritis type: unspecified Qualified Code(s): M17.0 - Bilateral primary osteoarthritis of knee Plan: as above Orders: Orders PT Evaluation and Treatment Today M17.0 - Bilateral primary osteoarthritis of knee, M19.071 - Primary osteoarthritis, right ankle and foot, M19.072 - Primary osteoarthritis, left ankle and foot, R29.6 - Repeated falls, S93.401A - Sprain of unspecified ligament of right ankle, initial encounter Coding Level of Care Code Est Pt Level 3 (08606) Diagnoses Sprain of right ankle, unspecified ligament, subsequent encounter S93.401D Encounter type: subsequent encounter Involved ligament of ankle: unspecified ligament Frequent falls R29.6 Osteoarthritis of both ankles, unspecified osteoarthritis type M19.071; M19.072 Osteoarthritis type: unspecified Osteoarthritis of both knees, unspecified osteoarthritis type M17.0 Osteoarthritis type: unspecified
--- OUTSIDE RECORDS SUMMARY | 2025-03-03 15:55 | XMS_ITS | Encounter Summary ---
Author Name [facility] [place] [facility] [place] Organization [facility] [place] Address [address] [place] [address] Care Team Providers Care Stage Technician Name Role Phone TRISTAN HERRERA Primary Care Provider [facility] Insurance Providers: All historical and current [...] PART A Apr 21, 2010 PART A [id number] [phone] JERONIMO REYES PATIENT MEDICARE (WNR) MEDICARE (M) PART B Apr 21, 2010 PART B [id number] JERONIMO REYES PATIENT MEDICARE (WNR) MEDICARE (M) PART A Apr 21, 2010 PART A [id number] JERONIMO REYES PATIENT MEDICARE (WNR) MEDICARE (M) PART B Apr 21, 2010 PART B [id number] JERONIMO REYES PATIENT FOR LIFE TFL* Apr 21, 2010 [id number] JERONIMO REYES PATIENT Selected Encounter This section includes the information on record at [place] for the Encounter. Date/Time Encounter Type Encounter Description Reason Pro vider Source IHE Encounter Template Text not used by [facility]
--- OUTSIDE RECORDS SUMMARY | 2025-03-03 15:55 | XMS_ITS | Patient Health Record ---
Author Organization [facility] Address [address] [place] [address] Care Team Providers Care Associate Professor Of Geography Name Role Phone Benjamin Donato MD Primary Care Provider Betsy Piña Unavailable [phone] Allergies Allergen (clinical drug ingredient) Drug/Non Drug Allergy documented on EMR Reaction Allergy Type Onset Date Status Motrin Unknown Drug Allergy Active Percodan Unknown Drug Allergy Active Talwin Unknown Drug Allergy Active Novacaine Unknown Drug Allergy Active Reason For Referral No Information Medications Medication SIG (Take, Route, Frequency, Duration) Notes Start Date End Date Status Tylenol Active Magnesium Active Vitamin D3 Active Dannemora 3-6-9 Active Vitamin E Active Antivert Active Social History Tobacco Use: Social History Observation Description Date Details (start date - stop date) Former Smoker NA - NA Tobacco Use/Smoking Question Answer Notes Are you a: former smoker Additional Findings: Tobacco Non-User Current no n-smoker Alcohol Screen Question Answer Notes Did you have a drink contain ing alcohol in the past year? Yes How often did you have a dri nk containing alcohol in the past year? Monthly or less (1 point) How many drinks did you have on a typical day when you were drinking in the past year? 1 or 2 drinks (0 point) How often did you have 6 or more drinks on one occasion in the past year? Less than monthly (1 point) Points 2 Interpretation Negative Tobacco use other than smoking: Question Answer Notes Are you an other tobacco user? No Plan Of Treatment No Information Insurance Providers Payer Name Payer Address Payer Phone Subscriber Number Group Number Insured Name Patient Relationship to Insured Coverage Start Date Coverage End Date Medicare National Govt Sv[employer] Inc [address] [place] [address] [id number] Anabella Crawford Self - patient is the insured 0 for Life [address] [place] [address] [id number] Anabella Crawford Self - patient is the insured 0 Medical (General) History Medical History History ICD Code Cataracts Chicken pox Glaucoma Numbness Measles Mumps Reflux ( GERD) Vertigo Arthritis
== END 2025-03-03 15:44 | disposition home or self-care (01) ==
PROVIDERS: PCP Internal Medicine; Visit Provider Physician Assistant
DX: M19.071 Primary osteoarthritis, right ankle and foot (principal); M19.072 Primary osteoarthritis, left ankle and foot; S93.401D Sprain of unspecified ligament of right ankle, subsequent encounter; R29.6 Repeated falls; M17.0 Bilateral primary osteoarthritis of knee

== ENCOUNTER → 2025-03-03 14:37 | Outpatient (BNVA) | payer MEDICARE, OTHER, SELFPAY | PROVIDERS: PCP Internal Medicine; Visit Provider Physician Assistant | DX: S93.401D Sprain of unspecified ligament of right ankle, subsequent encounter (principal); R29.6 Repeated falls; M19.072 Primary osteoarthritis, left ankle and foot; M19.071 Primary osteoarthritis, right ankle and foot; M17.0 Bilateral primary osteoarthritis of knee; Z87.891 Personal history of nicotine dependence | CPT/HCPCS: 99212 ==

== ENCOUNTER 2025-03-17 09:32 | Outpatient (REF) | payer MEDICARE, OTHER, SELFPAY ==
--- OUTSIDE RECORDS SUMMARY | 2025-03-17 10:22 | XMS_ITS | Patient Health Record ---
Author Organization [facility] Address [address] [place] [address] Care Team Providers Care Superintendent Division Name Role Phone Benjamin Donato MD Primary Care Provider Betsy Piña Unavailable [phone] Allergies Allergen (clinical drug ingredient) Drug/Non Drug Allergy documented on EMR Reaction Allergy Type Onset Date Status Motrin Unknown Drug Allergy Active Percodan Unknown Drug Allergy Active Talwin Unknown Drug Allergy Active Novacaine Unknown Drug Allergy Active Reason For Referral No Information Medications Medication SIG (Take, Route, Frequency, Duration) Notes Start Date End Date Status Tylenol Active Magnesium Active Vitamin D3 Active Baring 3-6-9 Active Vitamin E Active Antivert Active [...] Inc [address] [place] [address] [id number] Anabella Crawford Self - patient is the insured 0 for Life [address] [place] [address] [id number] Anabella Crawford Self - patient is the insured 0 Medical (General) History Medical History History ICD Code Cataracts Chicken pox Glaucoma Numbness Measles Mumps Reflux ( GERD) Vertigo Arthritis
== END 2025-03-17 09:33 | disposition home or self-care (01) ==
LOC: HO.MAMMO 09:32
PROVIDERS: PCP Internal Medicine; Visit Provider Internal Medicine
DX: Z12.31 Encounter for screening mammogram for malignant neoplasm of breast (principal)
CPT/HCPCS: 77063; 77067

== ENCOUNTER → 2025-03-17 10:00 | Outpatient (BNV) | payer MEDICARE, OTHER, SELFPAY | PROVIDERS: PCP Internal Medicine; Visit Provider Internal Medicine | DX: Z12.31 Encounter for screening mammogram for malignant neoplasm of breast (principal) | CPT/HCPCS: 77063; 77067 ==

== ENCOUNTER 2025-06-13 13:55 | Outpatient (AMB) | payer MEDICARE, OTHER, SELFPAY ==
[2025-06-13 13:56] VITALS: BP 128/76; PULSE 78; TEMP 36.6; O2SAT 95; BMI 27.3
--- NOTE | 2025-06-13 13:56 | MHC.OFFWIV ---
Intake Vital Signs 06/13/25 13:56 Height 5 ft 5 in Weight 164 lb BMI 27.3 BP 128/76 Blood Pressure Location Lt brachial Position Sitting Pulse 78 Pulse Source Pulse Oximeter Temp 97.8 F Temp Source Oral Pulse Oximetry (%) 95 Oxygen Delivery Method Room Air Oxygen Flow Rate 97.8 Intake Visit Reasons: EP-itchy spots in the body Intake Note: Patient presents with c/o itchy red spot on right flank & middle of sternum, sometimes burning sensation, that has been there since Monday. Patient Tobacco Use Status: Former Tobacco user Allergies lidocaine Allergy (Unknown, Verified 06/13/25 14:01) Weakness aspirin (From Percodan) Allergy (Verified 06/13/25 14:01) Dizziness oxycodone (From Percodan) Allergy (Verified 06/13/25 14:01) Dizziness pentazocine (From Talwin) Allergy (Verified 06/13/25 14:01) Headache Do you need a note to return to daycare/school/sports/work: No HPI HPI Comments History of Present Illness Details This is an 80-year-old female of a red itchy rash that she first noted on Monday. Patient states that she noticed a red itchy lesion on her right flank on Monday and the next morning noticed a similar lesion overlying the right side of her sternum. Patient states that both lesions are ?irritating? but primarily itchy in nature. Patient has not taken any medication for treatment of this rash. And of note, patient has received the shingles vaccine series previously. She denies having any fevers, chills or discharge from these lesions. [facility] Medical History BPPV (benign paroxysmal positional vertigo) Basal cell carcinoma Hyperlipidemia Rosacea Vertigo GERD (gastroesophageal reflux disease) Hypertension Family History (Updated 06/11/25 @ 13:13 by Lana Cardenas MA) Maternal Aunt History of breast cancer Mother No problems noted. Father No problems noted. 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 Cognitive needs: No Hearing needs: No Vision needs: Yes (rx glasses) Review of Systems Const All systems reviewed & are unremarkable except as noted in HPI and below Reports no additional complaints, Denies chills, Denies fatigue and Denies fever(s) Eyes Reports no additional complaints ENT Reports no additional complaints Card Reports no additional complaints Resp Reports no additional complaints GI Reports no additional complaints Reports no additional complaints Musc Reports no additional complaints Skin/Breast Reports system reviewed and no additional complaints, except as documented, Reports change in pigmentation, Reports changing lesions, Reports pruritus, Reports lesions and Reports new lesions Neuro Reports no additional complaints Psych Reports no additional complaints Endo Reports no additional complaints and Denies fatigue Adam/Lymph Reports no additional complaints Aller/Immun Reports no additional complaints Physical Exam Vital Signs: Last Vital Signs Temp 97.8 F 06/13/25 13:56 Pulse 78 06/13/25 13:56 BP 128/76 06/13/25 13:56 Pulse Ox 95 06/13/25 13:56 Oxygen Delivery Method Room Air 06/13/25 13:56 Oxygen Flow Rate 97.8 06/13/25 13:56 BMI result Body Mass Index 27.3 Const General: cooperative, healthy appearing, comfortable, no acute distress, well developed, alert, awake and Physically active; No ill appearing Nutritional Appearance: average body habitus Orientation/consciousness: patient oriented x3 Limitations: no limitations Skin Other: Two distinct erythematous raised lesions with interspersed vescicles and papules measuring 2-3cm in circumference located on the right flank and the right aspect of the sternum in a T.5-T.6 dermatomal distribution. No evidence of a secondary cellulitis and these lesions are non.tender on examination. Neuro General: patient oriented x3 Psych Appearance: grossly normal Mental Status: mental status grossly normal Insight: Good insight present (Psych) Judgement: Good judgement present (Psych) Assessment & Plan Assessment & Plan (1) Herpes zoster: Comment: Patient's history coupled with her examination is consistent with a herpes zoster eruption. Patient will be discharged home with Valtrex. Code(s): B02.9 - Zoster without complications Qualifiers: Herpes zoster complications: without complications Qualified Code(s): B02.9 - Zoster without complications Plan: Valtrex 1 g t.i.d. x7 days. Ibuprofen OTC as needed for discomfort. Medications: New valacyclovir (Valtrex) 1,000 mg PO TID 21 tabs 0RF Coding Level of Care Code Est Pt Level 3 (89618) Diagnoses Herpes zoster without complication B02.9 Herpes zoster complications: without complications Time Spent (min) 20
--- OUTSIDE RECORDS SUMMARY | 2025-06-13 15:57 | XMS_ITS | Patient Health Record ---
Author Organization [facility] Address [address] [place] [address] Care Team Providers Care Recreation Instructor Name Role Phone Benjamin Donato MD Primary Care Provider Betsy Piña Unavailable [phone] Allergies Allergen (clinical drug ingredient) Drug/Non Drug Allergy documented on EMR Reaction Allergy Type Onset Date Status Motrin Unknown Drug Allergy Active Percodan Unknown Drug Allergy Active Talwin Unknown Drug Allergy Active Novacaine Unknown Drug Allergy Active Reason For Referral No Information Medications Medication SIG (Take, Route, Frequency, Duration) Notes Start Date End Date Status Tylenol Active Magnesium Active Vitamin D3 Active [place] 3-6-9 Active Vitamin E Active Antivert Active [...] Inc [address] [place] [address] [id number] Anabella Crawford Self - patient is the insured 0 for Life [address] [place] [address] [id number] Anabella Crawford Self - patient is the insured 0 Medical (General) History Medical History History ICD Code Cataracts Chicken pox Glaucoma Numbness Measles Mumps Reflux ( GERD) Vertigo Arthritis
== END 2025-06-13 14:41 | disposition home or self-care (01) ==
PROVIDERS: PCP Physician Assistant Medical; Visit Provider Physician Assistant
DX: B02.9 Zoster without complications (principal)

== ENCOUNTER → 2025-06-13 13:55 | Outpatient (BNVA) | payer MEDICARE, OTHER, SELFPAY | PROVIDERS: PCP Physician Assistant Medical; Visit Provider Physician Assistant | DX: B02.9 Zoster without complications (principal) | CPT/HCPCS: 99212 ==

== ENCOUNTER 2025-07-02 10:17 | Outpatient (AMB) | payer MEDICARE, OTHER, SELFPAY ==
[2025-07-02 10:27] VITALS: BP 134/72; BMI 27.3
--- NOTE | 2025-07-02 10:27 | MHC.OFFVIS ---
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 annual exam Technical Director Required: No Orthotics Prosthetics Technician: Orthotics Prosthetics Technician Present Accompanied by: Employee Allergies lidocaine Allergy (Unknown, Verified 07/02/25 10:31) Weakness aspirin (From Percodan) Allergy (Verified 07/02/25 10:31) Dizziness oxycodone (From Percodan) Allergy (Verified 07/02/25 10:31) Dizziness pentazocine (From Talwin) Allergy (Verified 07/02/25 10:31) Headache Medication List - Last Reconciled 07/02/25 by Kira Segura LPN cholecalciferol (vitamin D3) 25 mcg PO DAILY latanoprost 0.005% 1 drp ophthalmic (eye) BEDTIME meclizine 12.5 mg PO TID PRN Post menopausal: Yes Patient : No HPI Comments Details: Patient is a postmenopausal woman 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 Currently sexually active. Denies any vaginal dryness or irritation. STI testing offered; she accepts. Attempting to eat a healthy diet with calcium and vitamin D and stays active with exercise. Last mammogram; 2024. Colonoscopy is not UTD. Denies any family history of breast, ovarian or colon cancer. [facility] Medical History BPPV (benign paroxysmal positional vertigo) Basal cell carcinoma Hyperlipidemia Rosacea Vertigo GERD (gastroesophageal reflux disease) Hypertension Family History Maternal Aunt History of breast cancer Mother No problems noted. Father No problems noted. 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 Cognitive needs: No Hearing needs: No Vision needs: Yes (rx glasses) Female Reproductive History Menstrual control method: none History of abnormal pap smear: No History of STI: No Date of Mammogram: 03/17/25 History of abnormal mammogram: No Review of Systems Const All systems reviewed & are unremarkable except as noted in HPI and below Reports as per HPI Eyes Reports no additional complaints ENT Reports no additional complaints Card Reports no additional complaints Resp Reports no additional complaints GI Reports as per HPI and Reports no additional complaints Reports as per HPI Musc Reports no additional complaints Skin/Breast Reports as per HPI Neuro Reports no additional complaints Psych Reports no additional complaints Endo Reports no additional complaints Adam/Lymph Reports no additional complaints Aller/Immun Reports no additional complaints Physical Exam Vital Signs: Last Vital Signs BP 134/72 07/02/25 10:27 BMI result Body Mass Index 27.3 Const General: cooperative, healthy appearing, no acute distress, well developed and alert Orientation/consciousness: patient oriented x3 HEENT Head: Yes normal to inspection Eyes General: appearance normal, both eyes and all related structures Neck Neck: Yes normal visual inspection Thyroid: Thyroid normal Chest Chest palpation & inspection: normal inspection of the chest and other (no puckering, dimpling, peau de orange, retraction, discharge, masses) Breast/axilla inspection: normal inspection of the breasts Breast/axilla palpation: normal palpation of the breasts Resp Effort & Inspection: normal respiratory effort GI Inspection: Yes normal to inspection Palpation (GI): Soft to palpation Rectal Exam - Female: deferred General: Yes bladder normal to palpation External Female Exam: normal external appearance and normal appearance of the urethra Speculum Exam - Vagina: normal appearance of the vagina, normal palpation, normal vaginal discharge and vagina atrophic Speculum Exam - Cervix: normal appearance of the cervix and normal palpation Bimanual exam- vagina & uterus: normal bimanual exam, normal palpation, uterine size normal, bladder normal to palpation, normal palpation and non-tender Bimanual Exam- Adnexa, other: no masses Skin General skin exam: no rashes or lesions noted Rashes: no rashes Neuro General: patient oriented x3 Cognition (Neuro): normal cognition Extrem General: Yes normal to inspection Psych Attitude: cooperative Thought process: Normal thought process present Assessment & Plan Assessment & Plan (1) Encounter for annual routine gynecological examination: Code(s): Z01.419 - Encounter for gynecological examination (general) (routine) without abnormal findings Category: Medical Plan Discussed: Current recommendations for pap smears per ASCCP guidelines. Breast awareness, periodic self breast exams and yearly mammogram. Maintain a healthy lifestyle, well balanced diet including Calcium 1,200 mg and Vitamin D 600 IU daily, and routine exercise. Contact the office with any postmenopausal bleeding. Patient verbalizes understanding and agrees to the plan of care. She was given opportunity to ask questions and all questions were answered to the best of my ability. RTO prn. This note is constructed using voice recognition software. While every effort has been made to ensure accuracy, shank taper errors may have been included. Coding Level of Care Code Est Pt Prev Care >65y(86457) Diagnoses Encounter for annual routine gynecological examination Z01.419
--- OUTSIDE RECORDS SUMMARY | 2025-07-02 12:09 | XMS_ITS | Patient Health Record ---
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 Name Role Phone Benjamin Donato MD Primary Care Provider Betsy Piña Unavailable [phone] Allergies Allergen (clinical drug ingredient) Drug/Non Drug Allergy documented on EMR Reaction Allergy Type Onset Date Status Motrin Unknown Drug Allergy Active Percodan Unknown Drug Allergy Active Talwin Unknown Drug Allergy Active Novacaine Unknown Drug Allergy Active Reason For Referral No Information Medications Medication SIG (Take, Route, Frequency, Duration) Notes Start Date End Date Status Tylenol Active Magnesium Active Vitamin D3 Active [place] 3-6-9 Active Vitamin E Active Antivert Active [...] Inc [address] [place] [address] [id number] Anabella Crawford Self - patient is the insured 0 for Life [address] [place] [address] [id number] Anabella Crawford Self - patient is the insured 0 Medical (General) History Medical History History ICD Code Cataracts Chicken pox Glaucoma Numbness Measles Mumps Reflux ( GERD) Vertigo Arthritis
== END 2025-07-02 11:27 | disposition home or self-care (01) ==
PROVIDERS: PCP Internal Medicine; Visit Provider Advanced Practice Midwife
DX: Z01.419 Encounter for gynecological examination (general) (routine) without abnormal findings (principal)
CPT/HCPCS: G0101

== ENCOUNTER → 2025-07-02 10:17 | Outpatient (BNVA) | payer MEDICARE, OTHER, SELFPAY | PROVIDERS: PCP Internal Medicine; Visit Provider Advanced Practice Midwife | DX: Z01.419 Encounter for gynecological examination (general) (routine) without abnormal findings (principal) | CPT/HCPCS: G0101 ==